=== PATIENT | male | born 1960 | race Caucasian/White ===

== ENCOUNTER → 2018-07-03 09:07 | Outpatient (CLI) | payer MEDICAID, SELFPAY ==
[2018-07-03 11:29] LABS: ALT 67 U/L (12-78); AST 28 U/L (15-37); Alkaline Phosphatase 104 U/L (46-116); Anion Gap 6.4 mmol/L (3-11); BUN 14 mg/dL (7-18); Bilirubin, Total 0.4 mg/dL (0.2-1.0); CO2 27.6 mmol/L (21.0-32.0); CREATININE 1.25 mg/dL (0.70-1.30); Calcium 8.9 mg/dL (8.5-10.1); Chloride 108 mmol/L (98-107); Cholesterol 161 mg/dL (50-200); Estimated GFR 59.32 (mL/min/1.73m2); Glucose 109 mg/dL (70-100); HDL Cholesterol 26 mg/dL (40-60); LDL CHOLESTEROL 103 mg/dL (<100); Potassium 4.8 mmol/L (3.5-5.1); Sodium 142 mmol/L (136-145); TSH (W/Ref FT4) 0.87 uIU/mL (0.358-3.74); Total Protein 6.7 g/dL (6.4-8.2); Triglyceride 253 mg/dL (30-150)
== END ==
PROVIDERS: PCP Family Medicine; Visit Provider Family Medicine
DX: Z13.220 Encounter for screening for lipoid disorders (principal); Z13.228 Encounter for screening for other metabolic disorders; Z13.29 Encounter for screening for other suspected endocrine disorder; Z00.00 Encounter for general adult medical examination without abnormal findings
CPT/HCPCS: 36415; 80053; 80061; 83721; 84443

== ENCOUNTER 2018-10-23 10:59 | Emergency (ER) | payer MEDICAID, SELFPAY ==
[2018-10-23 11:03] VITALS: BP 139/86; PULSE 69; RESP 16; O2SAT 93
--- NOTE | 2018-10-23 11:16 | ED.GENADUL_ITS ---
Discharge Plan Disposition Patient Disposition: HOME Condition: Stable Discharge Details Chief Complaint: RespSymp Clinical Impression: Bilateral wheezing, URI (upper respiratory infection), Influenza Primary Care Provider: Brooke Golden ED Provider: Kulwinder Boone Home Meds and New Rx's Prescriptions: New prednisone 20 mg tablet 60 mg PO DAILY 4 Days Qty: 12 RF: 0 doxycycline hyclate 100 mg tablet 100 mg PO BID Qty: 14 RF: 0 oseltamivir [Tamiflu] 75 mg capsule 75 mg PO BID 5 Days Qty: 10 RF: 0 Continued ASPIRIN 81 MG tablet 1 tab PO DAILY RF: 0 ascorbic acid (vitamin C) [Vitamin C] 500 MG tablet 1 tab PO DAILY RF: 0 garlic 1 EACH capsule 1 cap PO DAILY RF: 0 cholecalciferol (vitamin D3) 1,000 UNIT capsule 1 cap PO DAILY RF: 0 ginkgo biloba 400 MG capsule 1 cap PO DAILY RF: 0 EPINEPHRINE 0.3 MG/0.3 ML DISP.SYRIN 0.3 mg IM PRN RF: 0 red yeast rice 600 MG capsule 2 cap PO DAILY RF: 0 nicotine 1 EACH patch 24 hour 14 mg Transdermal DAILY Qty: 90 RF: 1 Atorvastatin Calcium 10 MG tablet 10 mg PO DAILY Qty: 90 RF: 12 propranolol 10 MG tablet 10 mg PO BID PRNQty: 180 RF: 12 citalopram 20 MG tablet 20 mg PO DAILY Qty: 90 RF: 12 ibuprofen 600 MG tablet 1 tab PO TID PRNQty: 200 RF: 12 atenolol 50 MG tablet 1 tab PO DAILY Qty: 90 RF: 12 nicotine (polacrilex) 2 mg gum 2 mg BC Q2H Qty: 100 RF: 4 gabapentin 300 mg capsule 300 mg PO TID Qty: 90 RF: 11 hydrocodone-acetaminophen 5-325 mg tablet 1 tab PO QID MDD 4 PRN (Reason: pain) Qty: 42 RF: 0 Discharge Instructions Additional Instructions: I suspect you have undiagosed COPD given your smoking history. I am treating you with antibiotics, steroids and an inhaler for this. You should follow up with your primary care provider within a week for recheck and discuss having formal testing for COPD Drink fluids to stay hydrated If you feel you are having more shortness of breath, severe weakness or feel significantly more ill return to the emergency department Medical Decision Making 57 yo male who has hx of chronic smoking who comes in with 3 days of subjective fevers, cough with some sputum production, denies recent travel. He is speaking in full sentences and appears well systemically with moist membranes, doubt sepsis. Does have mild wheezing at the bases bilaterally on exam, I suspect the patient has undiagnosed copd given his smoking hx and will treat as copd exacerbation with steroids and neb and also test for influenza. flu test is positive, will treat this given age and risk factors and also tx for copd exacerbation, remains stable and appropriate for outpatient management Differential Diagnosis copd, influenza, uri HPI General Mode of arrival: ambulatory . Date/Time Provider Initiated Documentation: 10/23/18 10:59 . Limitations to Documentation: no limitations . Information obtained by: patient . History of Present Illness 57 year old M presents to the emergency department with the chief complaint of cough, described as moderate, Patient started experiencing this day(s) (3) and it has been intermittent. No relieving factors improve symptom(s), Patient notes fever/chills. Patient did receive the following treatments prior to arrival, none Related Data Home Medications Medication Instructions Recorded Confirmed Aspirin 1 tab PO DAILY tab-cap 02/13/13 10/23/18 Epinephrine 0.3 mg IM PRN 02/13/13 10/23/18 ascorbic acid (vitamin C) [Vitamin 1 tab PO DAILY 02/13/13 10/23/18 C] cholecalciferol (vitamin D3) 1 cap PO DAILY 02/13/13 10/23/18 garlic 1 cap PO DAILY 02/13/13 10/23/18 ginkgo biloba 1 cap PO DAILY 02/13/13 10/23/18 red yeast rice 2 cap PO DAILY 07/06/15 10/23/18 nicotine 14 mg TRANSDERMAL DAILY #90 patch 09/25/17 10/23/18 atenolol 1 tab PO DAILY #90 tab-cap 01/22/18 10/23/18 citalopram 20 mg PO DAILY #90 tab-cap 01/22/18 10/23/18 ibuprofen 1 tab PO TID PRN #200 tab-cap 01/22/18 10/23/18 propranolol 10 mg PO BID PRN #180 tab-cap 01/22/18 10/23/18 gabapentin 300 mg capsule 300 mg PO TID #90 tab-cap 09/03/18 10/23/18 nicotine (polacrilex) 2 mg gum 2 mg BC Q2H #100 each 09/03/18 10/23/18 hydrocodone 5 mg-acetaminophen 325 1 tab PO QID PRN #42 tab-cap MDD 4 10/06/18 10/23/18 mg tablet doxycycline hyclate 100 mg PO BID #14 tab 10/23/18 oseltamivir [Tamiflu] 75 mg PO BID 5 Days #10 cap 10/23/18 prednisone 60 mg PO DAILY 4 Days #12 tab 10/23/18 Previous Rx's Medication Instructions Recorded nicotine 14 mg TRANSDERMAL DAILY #90 patch 09/25/17 atenolol 1 tab PO DAILY #90 tab-cap 01/22/18 citalopram 20 mg PO DAILY #90 tab-cap 01/22/18 gabapentin 300 mg capsule 300 mg PO TID #90 tab-cap 09/03/18 nicotine (polacrilex) 2 mg gum 2 mg BC Q2H #100 each 09/03/18 hydrocodone 5 mg-acetaminophen 325 1 tab PO QID PRN #42 tab-cap MDD 4 10/06/18 mg tablet doxycycline hyclate 100 mg PO BID #14 tab 10/23/18 oseltamivir [Tamiflu] 75 mg PO BID 5 Days #10 cap 10/23/18 prednisone 60 mg PO DAILY 4 Days #12 tab 10/23/18 Allergies Allergy/AdvReac Type Severity Reaction Status Date / Time venom-honey bee Allergy Syncope Unverified 10/23/18 11:07 morphine AdvReac N/V Unverified 10/23/18 11:07 General Stated Complaint: RespSymp LANEY: 4 Review of Systems Review of Systems All systems reviewed & are unremarkable except as noted in HPI and below Constitutional Denies chills, Denies fever(s) and Denies weakness Cardiovascular Denies chest pain and Denies dyspnea Respiratory Denies dyspnea Gastrointestinal Denies abdominal pain, Denies nausea and Denies vomiting Neurologic Denies weakness [facility] Surgical History Repair of inguinal hernia (~1979) Family History Mother Dementia Father Dementia Sister Celiac disease Brother No problems noted. Grandfather No problems noted. Grandfather No problems noted. Grandmother Heart disease Grandmother No problems noted. Uncle Charlie's disease Social History Smoking/Tobacco Use Status: Current every day Exam Const General: no acute distress Orientation: alert HENMT Head: normal to inspection Ears: external ears normal General nose exam: external nose normal Mouth: moist mucous membranes Eyes General: appearance normal, both eyes and all related structures Neck Neck: normal visual inspection Resp Effort & Inspection: normal respiratory effort and able to speak in complete sentences Cardio Rate: regular rate Skin General skin exam: no rashes or lesions noted Neuro General: alert and oriented x3 Extrem General: normal to inspection Psych Mental Status: mental status grossly normal Course Vital Signs Pulse 69 10/23/18 11:03 Respiratory Rate 16 10/23/18 11:03 Blood Pressure 139/86 10/23/18 11:03 Pulse Oximetry 93 L 10/23/18 11:03 Temperature Source Skin 10/23/18 11:03 Pulse 69 10/23/18 11:03 Respiratory Rate 16 10/23/18 11:03 Respiratory Effort Non-Labored 10/23/18 11:03 Blood Pressure 139/86 10/23/18 11:03 Blood Pressure Position Sitting 10/23/18 11:03 Pulse Oximetry 93 L 10/23/18 11:03 Oxygen Delivery Method Room Air 10/23/18 11:03 Oxygen Flow Rate 0 10/23/18 11:03 Pain Level 7 10/23/18 11:03
[2018-10-23 11:22] VITALS: O2SAT 93
[2018-10-23] MEDS: Albuterol/Ipratropium 3 ML UPD VIAL UPD (11:22)
[2018-10-23] MEDS: predniSONE 20 MG TAB 60 MG PO (11:22)
[2018-10-23] MEDS: Albuterol HFA 8 GM 60 PUFF INH IH (12:07)
[2018-10-23] MEDS: Inhaler, Assist Device 1 EACH MC (12:09)
== END 2018-10-23 12:13 | disposition home or self-care (01) ==
LOC: ER 11:46
PROVIDERS: Emergency Provider Emergency Medicine; PCP Family Medicine
DX: R06.02 Shortness of breath (principal); J06.9 Acute upper respiratory infection, unspecified; J10.1 Influenza due to other identified influenza virus with other respiratory manifestations; F17.210 Nicotine dependence, cigarettes, uncomplicated
CPT/HCPCS: 87449; 99283; J7512; J7620

== ENCOUNTER 2020-03-23 10:41 | Emergency (ER) | payer MEDICAID, SELFPAY ==
[2020-03-23 10:45] VITALS: BP 154/94; PULSE 77; RESP 18; TEMP 36.4; O2SAT 96
--- NOTE | 2020-03-23 10:53 | ED.GENADUL_ITS ---
Discharge Plan Disposition Patient Disposition: HOME Condition: Stable Discharge Details Chief Complaint: Nk/Back Pain Clinical Impression: Back pain Primary Care Provider: Brooke Golden ED Provider: Shanda Lizama Home Meds and New Rx's Prescriptions: Continued ASPIRIN 81 MG tablet 1 tab PO DAILY RF: 0 ascorbic acid (vitamin C) [Vitamin C] 500 MG tablet 1 tab PO DAILY RF: 0 garlic 1 EACH capsule 1 cap PO DAILY RF: 0 cholecalciferol (vitamin D3) 1,000 UNIT capsule 1 cap PO DAILY RF: 0 ginkgo biloba 400 MG capsule 1 cap PO DAILY RF: 0 EPINEPHRINE 0.3 MG/0.3 ML DISP.SYRIN 0.3 mg IM PRN RF: 0 red yeast rice 600 MG capsule 2 cap PO DAILY RF: 0 ibuprofen 600 mg tablet 600 mg PO TID PRN (Reason: pain) Qty: 100 RF: 4 atenolol 50 mg tablet 50 mg PO DAILY Qty: 90 RF: 12 nicotine (polacrilex) 2 mg gum 2 mg BC Q2H Qty: 100 RF: 2 citalopram 20 mg tablet 20 mg PO DAILY Qty: 90 RF: 12 atorvastatin [Lipitor] 10 mg tablet 10 mg PO DAILY Qty: 90 RF: 3 propranolol 10 mg tablet 10 mg PO BID PRN (Reason: anxiety) Qty: 180 RF: 4 acetaminophen 325 mg Tablet 650 mg PO DIRECTED PRNRF: 0 gabapentin 300 mg capsule 300 mg PO TID PRNRF: 0 No Action hydrocodone-acetaminophen 5-325 mg tablet 1 tab PO TID MDD 3 PRN (Reason: pain) Qty: 15 RF: 0 Discharge Instructions Instructions: Back Pain (ED) Additional Instructions: You may take lidocaine patches which are available over the counter. Follow up with PCP in 3-5 days, return to ED for any worsening pain, fever, vomiting, or shortness of breath. Take Tylenol or Ibuprofen asneeded for pain. Referrals: Brooke Golden MD, [place] [Primary Care Provider] - Discharge Data Discharge Date/Time-TO BE ENTERED AT DEPARTURE: 03/23/20 12:29 Medical Decision Making <hSanda Lizama - Last Filed: 03/23/20 13:08> 59-year-old male presents with a chief complaint of right-sided flank pain. He states that this began Sunday morning describes a sharp, waxes and wanes, moderate to severe. He reports posterior right flank pain, worse with deep breathing. Denies any injuries, reports similar episode 1 year ago which was improved with muscle relaxers and chiropractor. Patient went to the chiropractor yesterday with no improvement, took cyclobenzaprine and Tylenol prior to arrival with little to no relief. He denies any fever or chills, positive nausea, no vomiting no diarrhea.Denies dysuria. Labs ordered including CBC, CMP, D-dimer to rule out coagulopathy. CXR obtained results are below. Chest X-ray: COMPARISON: No exams were available for comparison FINDINGS: MEDIASTINUM: Normal. HEART: Normal. PULMONARY VASCULATURE: Normal. LUNGS: There is scarring or atelectasis in the right lung base. PLEURAL SPACE: No pleural effusion or pneumothorax. BONE:There is no evidence of a rib fracture. OTHER FINDINGS:Normal. IMPRESSION: No evidence of a rib fracture. Scarring or atelectasis in the right lung base. 1214: Patient re-evaluation pain is improved with lidocaine patch. D-dimer is negative. Plan is to discharge. <John Whitlock MD - Last Filed: 03/26/20 08:23> Patient seen, examined, and discussed with HUSSAIN Lizama. Reviewed results with the patient. I suggested he follow-up with his primary care physician and if pain persist he may need additional diagnostic imaging given chest x-ray findings. I agree with treatment plan as discussed/documented. Patient stable at time of discharge. HPI <Shanda Lizama - Last Filed: 03/23/20 13:08> General Mode of arrival: ambulatory . Date/Time Provider Initiated Documentation: 03/23/20 10:42 . Limitations to Documentation: no limitations . Information obtained by: patient . HPI Narrative: 59-year-old male presents with a chief complaint of right-sided flank pain. He states that this began Sunday morning describes a sharp, waxes and wanes, moderate to severe. He reports posterior right flank pain, worse with deep breathing. Denies any injuries, reports similar episode 1 year ago which was improved with muscle relaxers and chiropractor. Patient went to the chiropractor yesterday with no improvement, took cyclobenzaprine and Tylenol prior to arrival with little to no relief. He denies any fever or chills, positive nausea, no vomiting no diarrhea.Denies dsuria. Related Data Home Medications Medication Instructions Recorded Confirmed Aspirin 1 tab PO DAILY tab-cap 02/13/13 03/24/20 Epinephrine 0.3 mg IM PRN 02/13/13 03/24/20 ascorbic acid (vitamin C) [Vitamin 1 tab PO DAILY 02/13/13 03/24/20 C] cholecalciferol (vitamin D3) 1 cap PO DAILY 02/13/13 03/24/20 garlic 1 cap PO DAILY 02/13/13 03/24/20 ginkgo biloba 1 cap PO DAILY 02/13/13 03/24/20 red yeast rice 2 cap PO DAILY 07/06/15 03/24/20 ibuprofen 600 mg tablet 600 mg PO TID PRN #100 tab 01/24/19 03/24/20 atenolol 50 mg tablet 50 mg PO DAILY #90 tab-cap 07/21/19 03/24/20 nicotine (polacrilex) 2 mg gum 2 mg BC Q2H #100 each 01/23/20 03/24/20 atorvastatin 10 mg tablet 10 mg PO DAILY #90 tab 02/17/20 03/24/20 citalopram 20 mg tablet 20 mg PO DAILY #90 tab-cap 02/17/20 03/24/20 propranolol 10 mg tablet 10 mg PO BID PRN #180 tab-cap 02/17/20 03/24/20 acetaminophen 650 mg PO DIRECTED PRN 03/23/20 03/24/20 gabapentin 300 mg PO TID PRN 03/23/20 03/24/20 hydrocodone 5 mg-acetaminophen 325 1 tab PO TID PRN #15 tab-cap MDD 3 03/24/20 03/24/20 mg tablet Previous Rx's Medication Instructions Recorded ibuprofen 600 mg tablet 600 mg PO TID PRN #100 tab 01/24/19 atenolol 50 mg tablet 50 mg PO DAILY #90 tab-cap 07/21/19 nicotine (polacrilex) 2 mg gum 2 mg BC Q2H #100 each 01/23/20 atorvastatin 10 mg tablet 10 mg PO DAILY #90 tab 02/17/20 citalopram 20 mg tablet 20 mg PO DAILY #90 tab-cap 02/17/20 propranolol 10 mg tablet 10 mg PO BID PRN #180 tab-cap 02/17/20 hydrocodone 5 mg-acetaminophen 325 1 tab PO TID PRN #15 tab-cap MDD 3 03/24/20 mg tablet Allergies Allergy/AdvReac Type Severity Reaction Status Date / Time venom-honey bee Allergy Syncope Unverified 03/24/20 08:24 morphine AdvReac N/V Unverified 03/24/20 08:24 General Stated Complaint: Nk/Back Pain LANEY: 3 Review of Systems <Shanda Dl - Last Filed: 03/23/20 13:08> Narrative: Constitutional: Negative for weight loss, alert and oriented, well groomed, normal body habitus, appears comfortable. HEENT: Denies trauma, headaches, blurry vision, nasal discharge, sore throat, trouble swallowing. Chest: Denies chest pain, palpitations, irregular rhythm, hypertension. Respiratory: Denies Shortness of breath, cough, hemoptysis. GI: Denies abdominal pain, nausea, vomiting, diarrhea, constipation. : Denies dysuria, hematuria, flank pain, rectal bleeding. Neuro: Denies dizziness, blurry vision, weakness, syncope, headache or facial numbness. Hematologic: Denies easy bruising, intolerance to heat or cold, hair loss. All systems reviewed & are unremarkable except as noted in HPI and below PFSH <Shanda Dl - Last Filed: 03/23/20 13:08> Medical History Anxiety (Chronic 12/18/16) Chronic pain disorder (Chronic 06/20/12) 02/07/16; NARCOTIC CONTRACT 07/03/17; CONTROLLED SUBSTANCE AGREEMENT~RENEWED Degeneration of cervical intervertebral disc (Chronic 09/05/10) Depressive disorder (Chronic 09/05/10) Economic problem (Chronic) Essential hypertension (Chronic) Hyperlipidemia (Chronic 05/27/13) Lumbago (Chronic 09/05/10) Onychomycosis (Chronic 09/05/10) Plantar fascia syndrome (Resolved) 10/21/15 Shoulder pain (Resolved 04/20/14) partiel tear of supraspinatus mri 01/17 Smoker (Chronic 09/05/10) Surgical History Repair of inguinal hernia (~1979) RIGHT Family History Mother , 89 Dementia Father , 74 Dementia Sister Celiac disease Brother No problems noted. Maternal Grandfather No problems noted. Paternal Grandfather No problems noted. Maternal Grandmother , 84 Heart disease Paternal Grandmother No problems noted. Uncle Wirt's disease Sister No problems noted. Daughter No problems noted. Social History Smoking/Tobacco Use Status: Current every day Tobacco Type: cigarettes Alcohol Intake: former Drug use: Occasionally Substance use type: painkillers Details: prescription- hydrocodone 5 mg x 15 pills per month. Is out this month. Household members: spouse, children and other Details: Grandchildren Pets and animals: Yes Pets and animals: bird(s) Sexually active: Yes Do you think of yourself as: straight/heterosexual Current gender identity: male What is your relationship status?: How often do you talk on the phone with friends or family?: once per week How often do you get together with friends or relatives?: decline to answer How often do you attend temple or restorationist services?: decline to answer Do you belong to any clubs or organized social groups?: decline to answer Panel score (0-1 are the most socially isolated patients): 1 What type of physical activity do you participate in: decline to answer Duration: 15-30 minutes/day Frequency: decline to answer Nahomi/Moravian: Restorationist Special nahomi needs: No Seatbelt use: always Drive intox or ride w/intox [employer]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 Appears stated age. Normal body habitus. Head: Normocephalic, no trauma. Eyes: Pupils PERRLA, Red reflex noted, EOM's intact. Eyelids symmetrical without lesions, discharge, or swelling. ENT: Bilateral TM's WNL, External ear normal to inspection, no mastoid TTP, swelling, or erythema, Nasal turbinates WNL, no nasal discharge. Normal dentition, Posterior pharynx WNL, no exudate. Chest: RRR, Normal S1, S2, distal pulses intact. Resp: Lungs clear to auscultation bilaterally, no wheezes, rales, or rhonchi. Musculoskeletal: Normal gait, 5/5 strength to all four extremities. Skin: No suspicious rashes or lesions. Capillary refill less than 2 sec. Neurologic: Cranial nerves II-XII intact. Alert and oriented x 3. DTR's intact. Hematologic/Lymphatic: No ecchymosis, no lymphadenopathy. Course <Shanda Lizama - Last Filed: 03/23/20 13:08> Vital Signs Vital signs: Vital Signs Temperature 36.4 C L 03/23/20 10:45 Pulse 77 03/23/20 10:45 Respiratory Rate 18 03/23/20 10:45 Blood Pressure 154/94 H 03/23/20 10:45 Pulse Oximetry 96 03/23/20 10:45 Temperature 36.4 C L 03/23/20 10:45 Pulse 77 03/23/20 10:45 Respiratory Rate 18 03/23/20 10:45 Blood Pressure 154/94 H 03/23/20 10:45 Blood Pressure Position Sitting 03/23/20 10:45 Pulse Oximetry 96 03/23/20 10:45 Oxygen Delivery Method Room Air 03/23/20 10:45 Oxygen Flow Rate 0 03/23/20 10:45 Pain Level 8 03/23/20 10:45
--- NOTE | 2020-03-23 11:15 | DI.RAD_ITS ---
EXAM: XR RIBS RT W PA LAT CHEST CLINICAL HISTORY: Right flank pain TECHNIQUE: 2D digital imaging was performed. COMPARISON: No exams were available for comparison FINDINGS: MEDIASTINUM: Normal. HEART: Normal. PULMONARY VASCULATURE: Normal. LUNGS: There is scarring or atelectasis in the right lung base. PLEURAL SPACE: No pleural effusion or pneumothorax. BONE:There is no evidence of a rib fracture. OTHER FINDINGS:Normal. IMPRESSION: No evidence of a rib fracture. Scarring or atelectasis in the right lung base. DATA REPOSITORY: RADIATION DOSE DELIVERED:
[2020-03-23 11:29] LABS: Bilirubin Negative (Negative); Blood Negative (Negative); Clarity Clear (Clear); Glucose Negative (Negative); Ketones Negative (Negative); Leukocyte Esterase Negative (Negative); Nitrite Negative (Negative); Specific Gravity 1.025 (1.005-1.025); Urobilinogen 0.2 EU/dL (Up TO 0.2); pH 5.5 (5-8)
[2020-03-23] MEDS: Lidocaine 5% Patch 1 PATCH TP (11:37)
[2020-03-23 11:38] LABS: HCT 47.6 % (40.0-50.0); HGB 16.1 g/dL (13.5-17.5); Mean Corp. HGB Concentration 33.8 g/dL (32.0-36.0); Mean Corpuscular Volume 91.5 fL (80-95); Mean Platelet Volume 11.5 fL (8.0-11.0); Platelet Count 202 x1000/uL (130-400); RBC Distribution Width 13.2 % (11.8-14.1); White Blood Cell Count 8.52 k/cumm (4.4-10.8)
[2020-03-23] MEDS: Normal Saline Flush 10 ML SYR IVP (11:39)
[2020-03-23 11:44] VITALS: BP 135/90; PULSE 72; RESP 16; TEMP 37.1; O2SAT 97
[2020-03-23 11:55] LABS: ALT 52 U/L (16-63); AST 27 U/L (15-37); Albumin 4.1 g/dL (3.4-5.0); Alkaline Phosphatase 115 U/L (46-116); Anion Gap 7.7 mmol/L (3-11); BUN 14 mg/dL (7-18); Bilirubin, Total 0.4 mg/dL (0.2-1.0); CO2 26.3 mmol/L (21.0-32.0); CREATININE 1.27 mg/dL (0.70-1.30); Calcium 9.4 mg/dL (8.5-10.1); Chloride 104 mmol/L (98-107); Estimated GFR 57.85 (mL/min/1.73m2); Glucose 116 mg/dL (74-106); Potassium 4.2 mmol/L (3.5-5.1); Sodium 138 mmol/L (136-145); Total Protein 7.4 g/dL (6.4-8.2)
[2020-03-23 12:12] LABS: D-Dimer 471 ng/mlFEU (<500)
== END 2020-03-23 12:29 | disposition home or self-care (01) ==
PROVIDERS: Emergency Provider Registered Nurse Emergency; PCP Family Medicine
DX: M54.5 Low back pain (principal); I10 Essential (primary) hypertension
CPT/HCPCS: 36415; 80053; 85027; 96372; 99284; 99285; 71046; 71100; 81003; 85379

== ENCOUNTER 2020-03-23 15:54 | Emergency (ER) | payer MEDICAID, SELFPAY ==
[2020-03-23 15:59] VITALS: BP 178/103; PULSE 70; RESP 19; TEMP 37.6; O2SAT 96
[2020-03-23] MEDS: Ketorolac 60 MG/2 ML VIAL IM (16:27)
[2020-03-23] MEDS: Cyclobenzaprine 10 MG TAB PO (16:27)
--- NOTE | 2020-03-23 17:03 | NUR.NOTE ---
Pt states no change in pain with previous interventions. provider aware, will re-evaluate:
[2020-03-23 17:30] VITALS: BP 156/84; PULSE 67; RESP 16; TEMP 37.7; O2SAT 98
--- NOTE | 2020-03-23 17:32 | ED.GENADUL_ITS ---
Discharge Plan Disposition Patient Disposition: HOME Condition: Stable Discharge Details Chief Complaint: Recheck Clinical Impression: Back pain, Renal cyst Primary Care Provider: Brooke Golden ED Provider: Chidi Torres Home Meds and New Rx's Prescriptions: No Action ASPIRIN 81 MG tablet 1 tab PO DAILY RF: 0 ascorbic acid (vitamin C) [Vitamin C] 500 MG tablet 1 tab PO DAILY RF: 0 garlic 1 EACH capsule 1 cap PO DAILY RF: 0 cholecalciferol (vitamin D3) 1,000 UNIT capsule 1 cap PO DAILY RF: 0 ginkgo biloba 400 MG capsule 1 cap PO DAILY RF: 0 EPINEPHRINE 0.3 MG/0.3 ML DISP.SYRIN 0.3 mg IM PRN RF: 0 red yeast rice 600 MG capsule 2 cap PO DAILY RF: 0 ibuprofen 600 mg tablet 600 mg PO TID PRN (Reason: pain) Qty: 100 RF: 4 atenolol 50 mg tablet 50 mg PO DAILY Qty: 90 RF: 12 nicotine (polacrilex) 2 mg gum 2 mg BC Q2H Qty: 100 RF: 2 citalopram 20 mg tablet 20 mg PO DAILY Qty: 90 RF: 12 atorvastatin [Lipitor] 10 mg tablet 10 mg PO DAILY Qty: 90 RF: 3 propranolol 10 mg tablet 10 mg PO BID PRN (Reason: anxiety) Qty: 180 RF: 4 hydrocodone-acetaminophen 5-325 mg tablet 1 tab PO TID MDD 3 PRN (Reason: pain) Qty: 15 RF: 0 acetaminophen 325 mg Tablet 650 mg PO DIRECTED PRNRF: 0 gabapentin 300 mg capsule 300 mg PO TID PRNRF: 0 Discharge Instructions Instructions: Back Pain (ED) Additional Instructions: CT reveals a benign right renal cyst, 5 cm in size. Could certainly explain your symptoms. Your CBC, CMP, d-dimer, urinalysis from your visit earlier today were all normal and reassuring. X-ray of your chest was taken and discussed with him. I will send this record to your primary care office so they were aware of your visit today, I strongly recommend contacting them first thing tomorrow morning for prompt outpatient reevaluation. Nephrology referral through your primary care is likely indicated if symptoms persist. Tomorrow you are able to fill your narcotic prescription and take as directed. In the meantime I recommend gentle stretching, cool and/or warm compresses, [id number] anti-inflammatory medication as directed. Please watch for new or worsening symptoms and return to the ER for any concerns. As we discussed, you do have a pain contract, and this does limit the options that I have to treat her pain here in the ER. We initially tried Flexeril and Toradol without relief. We agreed to a one-time dose of IM morphine. This medication did seem to take the edge off of your symptoms. Discharge Data Discharge Date/Time-TO BE ENTERED AT DEPARTURE: 03/23/20 18:47 Medical Decision Making 59-year-old gentleman who presents twice today for the same right back-flank discomfort. He denies any chest pain. Examination certainly shows that there is some musculoskeletal component to this however his pain does appear slightly worse than I would expect. I did review labs earlier today, chest x-ray, CBC, CMP, d-dimer, urinalysis. Patient given p.o. Flexeril and IV Toradol. Patient had no resolution of his symptoms. We discussed his pain contract, will give a single dose of IM morphine. Given I do not have a clear explanation of his discomfort will obtain CT abdomen pelvis with contrast. Patient is agreeable to this plan CT reveals a benign right renal cyst 5 cm, simple morphology with no surrounding edema. No significant stones are identified in the collecting system. Scattered colonic diverticula without diverticulitis. Mild anterolisthesis L4 over L5. CT does not reveal any obvious emergent or surgical process however given he does have a 5 cm cyst along right kidney, this certainly could play into his discomfort. Discussed findings with patient. Actually his called as well I discussed everything up till CT, when she called he was actually at CT. When the patient returned from CT he reports that the morphine did take the edge off of his symptoms. We discussed the CT findings. We discussed disposition, he will be discharged now, can fill his prescription for pain medications written by his primary care provider tomorrow and will reach out to their office. I have placed him on the care management list to help expedite outpatient follow- up, he understands if symptoms persist he will likely need nephrology follow-up. Patient has no additional questions or concerns and is comfortable discharge at this time. I did discuss presentation, evaluation, and disposition with Dr. Whitlock. Medical Records Medical records reviewed: Yes I reviewed the patient's medical records. Lab Data Lab results reviewed: Yes I reviewed the patient's lab results. Lab results narrative: I reviewed labs from the visit earlier today. HPI General Mode of arrival: ambulatory . Date/Time Provider Initiated Documentation: 03/23/20 16:04 . Limitations to Documentation: no limitations . Information obtained by: patient . HPI Narrative: This is a 59-year-old gentleman with history of chronic neck pain, hyperlipidemia, depression, anxiety, hypertension, chronic pain disorder, presenting now for the second time in the ER today for right sided back-flank discomfort. He reports that the yong n began on Sunday upon waking. He did start working again on Sunday and does repetitive motion and lifting although it does not remember an actual injury. Reports a similar presentation 1 year ago, went to his chiropractor and after adjustment felt better the next day or 2. Did see his chiropractor yesterday however adjustment has not helped. Reports the pain is across his right lower ribs, right flank, worse with movement or engagement of his core. During his visit earlier today he had a chest x-ray, CBC, CMP, d-dimer and urinalysis, subsequently discharged with Lidoderm patch however he took it off. He does get 15 Percocet on a monthly basis through his primary care provider, has been out of his medication for approximately 1 week and can refill his medication tomorrow. He denies any chest pain, shortness of breath, abdominal pain, dysuria, hematuria, radiation of pain down his legs or into his groin. Denies numbness, tingling, weakness. Related Data Home Medications Medication Instructions Recorded Confirmed Aspirin 1 tab PO DAILY tab-cap 02/13/13 03/23/20 Epinephrine 0.3 mg IM PRN 02/13/13 03/23/20 ascorbic acid (vitamin C) [Vitamin 1 tab PO DAILY 02/13/13 03/23/20 C] cholecalciferol (vitamin D3) 1 cap PO DAILY 02/13/13 03/23/20 garlic 1 cap PO DAILY 02/13/13 03/23/20 ginkgo biloba 1 cap PO DAILY 02/13/13 03/23/20 red yeast rice 2 cap PO DAILY 07/06/15 03/23/20 ibuprofen 600 mg tablet 600 mg PO TID PRN #100 tab 01/24/19 03/23/20 atenolol 50 mg tablet 50 mg PO DAILY #90 tab-cap 07/21/19 03/23/20 nicotine (polacrilex) 2 mg gum 2 mg BC Q2H #100 each 01/23/20 03/23/20 atorvastatin 10 mg tablet 10 mg PO DAILY #90 tab 02/17/20 03/23/20 citalopram 20 mg tablet 20 mg PO DAILY #90 tab-cap 02/17/20 03/23/20 propranolol 10 mg tablet 10 mg PO BID PRN #180 tab-cap 02/17/20 03/23/20 hydrocodone 5 mg-acetaminophen 325 1 tab PO TID PRN #15 tab-cap MDD 3 02/25/20 03/23/20 mg tablet acetaminophen 650 mg PO DIRECTED PRN 03/23/20 03/23/20 gabapentin 300 mg PO TID PRN 03/23/20 03/23/20 Previous Rx's Medication Instructions Recorded ibuprofen 600 mg tablet 600 mg PO TID PRN #100 tab 01/24/19 atenolol 50 mg tablet 50 mg PO DAILY #90 tab-cap 07/21/19 nicotine (polacrilex) 2 mg gum 2 mg BC Q2H #100 each 01/23/20 atorvastatin 10 mg tablet 10 mg PO DAILY #90 tab 02/17/20 citalopram 20 mg tablet 20 mg PO DAILY #90 tab-cap 02/17/20 propranolol 10 mg tablet 10 mg PO BID PRN #180 tab-cap 02/17/20 hydrocodone 5 mg-acetaminophen 325 1 tab PO TID PRN #15 tab-cap MDD 3 02/25/20 mg tablet Allergies Allergy/AdvReac Type Severity Reaction Status Date / Time venom-honey bee Allergy Syncope Unverified 03/23/20 11:41 morphine AdvReac N/V Unverified 03/23/20 11:41 General Stated Complaint: Recheck LANEY: 3 Review of Systems Constitutional Constitutional: Denies fatigue, Denies fever(s) and Denies weakness Cardiovascular Cardiovascular: Denies chest pain and Denies dyspnea Respiratory Respiratory: Denies cough and Denies dyspnea Gastrointestinal Gastrointestinal: Reports abdominal pain (Right flank), Denies diarrhea, Denies nausea and Denies vomiting Genitourinary Genitourinary: Denies hematuria and Denies dysuria Musculoskeletal Musculoskeletal: Reports back pain, Denies myalgias, Denies numbness, Denies stiffness and Denies tingling Integumentary/Breasts Skin/Breast: Denies rash Neurologic Neurologic: Denies numbness, Denies tingling and Denies weakness Endocrine Endocrine: Denies fatigue PFSH Medical History Anxiety (Chronic 12/18/16) Chronic pain disorder (Chronic 06/20/12) 02/07/16; NARCOTIC CONTRACT 07/03/17; CONTROLLED SUBSTANCE AGREEMENT~RENEWED Degeneration of cervical intervertebral disc (Chronic 09/05/10) Depressive disorder (Chronic 09/05/10) Economic problem (Chronic) Essential hypertension (Chronic) Hyperlipidemia (Chronic 05/27/13) Lumbago (Chronic 09/05/10) Onychomycosis (Chronic 09/05/10) Plantar fascia syndrome (Resolved) 10/21/15 Shoulder pain (Resolved 04/20/14) partiel tear of supraspinatus mri 01/17 Smoker (Chronic 09/05/10) Surgical History Repair of inguinal hernia (~1979) RIGHT Family History Mother , 89 Dementia Father , 74 Dementia Sister Celiac disease Brother No problems noted. Maternal Grandfather No problems noted. Paternal Grandfather No problems noted. Maternal Grandmother , 84 Heart disease Paternal Grandmother No problems noted. Uncle [place]'s disease Sister No problems noted. Daughter No problems noted. Social History Smoking/Tobacco Use Status: Current every day Tobacco Type: cigarettes Alcohol Intake: former Drug use: Occasionally Substance use type: painkillers Details: prescription- hydrocodone 5 mg x 15 pills per month. Is out this month. Household members: spouse, children and other Details: Grandchildren Pets and animals: Yes Pets and animals: bird(s) Sexually active: Yes Do you think of yourself as: straight/heterosexual Current gender identity: male What is your relationship status?: How often do you talk on the phone with friends or family?: once per week How often do you get together with friends or relatives?: decline to answer How often do you attend quaker or restorationism services?: decline to answer Do you belong to any clubs or organized social groups?: decline to answer Panel score (0-1 are the most socially isolated patients): 1 What type of physical activity do you participate in: decline to answer Duration: 15-30 minutes/day Frequency: decline to answer Nahomi/Confucianist: Congregation Special nahomi needs: No Seatbelt use: always Drive intox or ride w/intox front end loader driver: No Do you feel safe at home: Yes Do you feel safe in your relationship?: Yes Exam Const General: cooperative, healthy appearing, comfortable and in distress mild Orientation: alert, awake and oriented x3 HENMT Head: normal to inspection, normocephalic and atraumatic Mouth: moist mucous membranes Throat: posterior oropharynx normal Eyes Conjunctivae: conjunctivae normal Neck Neck: normal visual inspection, full ROM, meningismus present, trachea midline and supple Chest Chest: normal inspection of the chest and normal palpation of entire chest wall Resp Effort & Inspection: normal respiratory effort and able to speak in complete sentences Auscultation: clear to auscultation bilaterally Cardio Rate: regular rate Rhythm: regular rhythm GI Inspection: normal to inspection Palpation: soft, not firm, no guarding, not rigid and tender (Diffuse right flank) with no rebound tenderness Auscultation: normal bowel sounds Back/Spine/Pelvis Back: No no CVA tenderness, No erythema, No warmth and back tenderness (Diffuse lower thoracic, upper lumbar right-sided discomfort without spasm) Thoracic/Lumbar Spine: straight leg raise positive (Bilateral left 15, right 20 degrees) Skin General skin exam: no rashes or lesions noted Neuro General: patient alert, patient awake, patient oriented x3, moves all extremiti es and no focal motor deficits Cognition: normal cognition Speech: speech normal Gait: normal gait Motor: muscle tone normal throughout and strength 5/5 throughout Sensory Exam: no sensory deficits noted Extrem General: normal to inspection, full ROM, capillary refill normal, no pedal edema and no calf tenderness Right upper extremity: normal to inspection, full ROM and normal capillary refill Left upper extremity: normal to inspection, full ROM and normal capillary refill Right lower extremity: normal to inspection, full ROM and normal capillary refill Left lower extremity: normal to inspection, full ROM and normal capillary refill Psych Appearance: grossly normal Mental Status: mental status grossly normal Course Vital Signs Vital signs: Vital Signs Temperature 37.6 C H 03/23/20 15:59 Pulse 70 03/23/20 15:59 Respiratory Rate 19 03/23/20 15:59 Blood Pressure 178/103 H 03/23/20 15:59 Pulse Oximetry 96 03/23/20 15:59 Temperature 37.7 C H 03/23/20 17:30 Temperature Source Tympanic 03/23/20 17:30 Pulse 67 03/23/20 17:30 Respiratory Rate 16 03/23/20 17:30 Respiratory Effort 03/23/20 16:02 Blood Pressure 156/84 H 03/23/20 17:30 Blood Pressure Position Sitting 03/23/20 15:59 Pulse Oximetry 98 03/23/20 17:30 Oxygen Delivery Method Room Air 03/23/20 17:30 Oxygen Flow Rate 0 03/23/20 17:30 Pain Level 9 03/23/20 16:27
--- NOTE | 2020-03-23 17:45 | DI.CT_ITS ---
EXAM: CT ABDOMEN PELVIS W CLINICAL HISTORY: Right flank pain, normal labs, no hematuria. TECHNIQUE: Imaging Protocol: Axial computed tomography images with coronal and sagittal reformatted images were created and reviewed CONTRAST MATERIAL: Intravenous: Omnipaque 350 Contrast volume:100 mL Oral: No COMPARISON: No exams were available for comparison FINDINGS: ABDOMEN: Lung Bases: Bilateral basilar infiltrates are seen. These may represent atelectasis or pneumonia. P lease correlate clinically. Liver: Well-circumscribed hypodensities in the liver likely reflecting small cysts but are too small for further characterization. No measurable mass. Portal, Superior Mesenteric, and Splenic Veins: Unremarkable. Gallbladder and Biliary Tract: No radiodense calculus or dilation. Pancreas: Normal density, no abnormal calcifications or inflammatory process. Spleen: Normal. Adrenals: No masses seen. Kidneys: Normal size, contour and axis. No radiodense stones or obstructive uropathy. There are bilat eral simple renal cysts. The largest measures 5.2 cm and is located in the right kidney. No solid r enal mass. Abdominal Aorta: Abdominal portion non-dilated. Atherosclerosis. Bowel: No obstruction or bowel wall thickening. No evidence of acute appendicitis. Colonic diverticu losis but no evidence of acute diverticulitis. Peritoneal Cavity: No ascites, collection or mesenteric inflammatory response. Lymph Nodes: Within normal limits. Bones: Degenerative changes in the spine. Mild pseudo spondylolisthesis of L4 on L5. Soft Tissues: Small fat containing umbilical hernia. Small amount of subcutaneous gas overlying the left gluteal muscles. No focal fluid collection or surrounding edema. PELVIS: Bladder: Symmetric distention, no gross wall thickening. Reproductive Organs: Unremarkable as visualized. Lymph Nodes: Within normal limits. Bones: Degenerative changes in the spine. IMPRESSION: 1. No acute intra-abdominal or pelvic abnormality. 2. Small amount of subcutaneous gas overlying the left gluteal muscles. Please correlate clinically. Has there been a recent injection? RADIATION DOSE DELIVERED: 958.97mGy.cm Total DLP DATA REPOSITORY: All CT scans at this facility are submitted to the National Radiology Data Registry (NRDR) Dose Index Registry (DIR) with the [employer] (ACR). RADIATION OPTIMIZATION: All CT scans at this facility use at least one of these dose optimization te chniques: automated exposure control; mA and/or kV adjustment per patient size (includes targeted exa ms where dose is matched to clinical indication); or iterative reconstruction.
[2020-03-23] MEDS: Omnipaque 350 MG/ML 100 ML BTL IJ (18:14)
[2020-03-23] MEDS: Normal Saline - Diluent 50 ML VIAL IV (18:15)
[2020-03-23] MEDS: Normal Saline Flush 10 ML SYR IVP (18:16)
--- NOTE | 2020-03-23 18:32 | DI.VRAD_ITS ---
PROCEDURE INFORMATION: Exam: CT Abdomen And Pelvis With Contrast Exam date and time: 03/23/2020 17:56 Age: 59 years old Clinical indication: Abdominal pain and other: Right flank pain, normal labs, no hematuria. ; Prior surgery; Surgery date: 6+ months; Surgery type: Hernia repair TECHNIQUE: Imaging protocol: Computed tomography of the abdomen and pelvis with intravenous contrast. Radiation optimization: All CT scans at this facility use at least one of these dose optimization techniques: automated exposure control; mA and/or kV adjustment per patient size (includes targeted exams where dose is matched to clinical indication); or iterative reconstruction. Contrast material: OMNIPAQUE 350; Contrast volume: 100 ml; Contrast route: IV; COMPARISON: No relevant prior studies available. FINDINGS: Lungs: Mild subsegmental atelectasis right greater than left lung base. Liver: A benign-appearing right hepatic probable cyst, additional probable cyst. No suspicious hepatic lesions. Gallbladder and bile ducts: No calcified stones. No ductal dilation. Pancreas: No ductal dilation. No masses. Spleen: No splenomegaly or focal lesions. Adrenals: No mass. Kidneys and ureters: Benign right renal cyst. Benign left renal cyst. No renal masses or hydronephrosis bilaterally. A dominant and benign-appearing 5 cm right renal cyst, simple in morphology and with no surrounding edema, felt to be an on likely source of the patient's pain. No significant stones are identified in the collecting systems on postcontrast imaging. Stomach and bowel: Scattered colonic diverticula without diverticulitis. No focal pathology in the small bowel. Appendix: No evidence of appendicitis. Intraperitoneal space: No free air. No significant fluid collection. Vasculature: No abdominal aortic aneurysm. Lymph nodes: No significantly enlarged lymph nodes. Bladder: Unremarkable as visualized. Reproductive: Unremarkable as visualized. Bones/joints: Minor anterolisthesis L4 over L5 appearing likely chronic and degenerative, in the setting of mild facet hypertrophy. No acute fracture or subluxation. Soft tissues: Small fat-containing umbilical hernia. Surgical clips in the inguinal canal bilaterally presumed vasectomies. A small amount of gas left supra gluteal subcutaneous fat without surrounding edema. A probable right inguinal hernia repair, no residual or recurrent hernia. IMPRESSION: 1. No acute findings. No source of pain is identified. 2. A small amount of gas left supra gluteal subcutaneous fat without surrounding edema. Question medication injection? 3. Nonurgent findings as above. Dictated and Authenticated by: Jacqueline Chung MD. Ordering:FRANSISCA Murillo MD
== END 2020-03-23 18:47 | disposition home or self-care (01) ==
PROVIDERS: Emergency Provider Physician Assistant; PCP Family Medicine
DX: N28.1 Cyst of kidney, acquired (principal); M54.5 Low back pain; I10 Essential (primary) hypertension
CPT/HCPCS: 36415; 80053; 85027; 96372; 99284; 99285; 71046; 71100; 74177; 81003; 85379; J1885; J3490

== ENCOUNTER 2020-06-08 14:21 | Emergency (ER) | payer MEDICAID, SELFPAY ==
[2020-06-08 14:25] VITALS: BP 179/93; PULSE 72; RESP 16; TEMP 36.7; O2SAT 94
[2020-06-08 14:30] VITALS: RESP 20
--- NOTE | 2020-06-08 14:49 | ED.GENADUL_ITS ---
Discharge Plan Disposition Patient Disposition: HOME Condition: Stable Discharge Details Chief Complaint: GenMedical Clinical Impression: Lumbago Primary Care Provider: Brooke Golden ED Provider: Kulwinder Boone Home Meds and New Rx's Prescriptions: New cyclobenzaprine 10 mg tablet 10 mg PO TID PRNQty: 20 RF: 0 Continued ASPIRIN 81 MG tablet 1 tab PO DAILY RF: 0 ascorbic acid (vitamin C) [Vitamin C] 500 MG tablet 1 tab PO DAILY RF: 0 garlic 1 EACH capsule 1 cap PO DAILY RF: 0 cholecalciferol (vitamin D3) 1,000 UNIT capsule 1 cap PO DAILY RF: 0 ginkgo biloba 400 MG capsule 1 cap PO DAILY RF: 0 EPINEPHRINE 0.3 MG/0.3 ML DISP.SYRIN 0.3 mg IM PRN RF: 0 ibuprofen 600 mg tablet 600 mg PO TID PRN (Reason: pain) Qty: 100 RF: 4 atenolol 50 mg tablet 50 mg PO DAILY Qty: 90 RF: 12 citalopram 20 mg tablet 20 mg PO DAILY Qty: 90 RF: 12 atorvastatin [Lipitor] 10 mg tablet 10 mg PO DAILY Qty: 90 RF: 3 propranolol 10 mg tablet 10 mg PO BID PRN (Reason: anxiety) Qty: 180 RF: 4 hydrocodone-acetaminophen 5-325 mg tablet 1 tab PO TID MDD 3 PRN (Reason: pain) Qty: 15 RF: 0 nicotine (polacrilex) 2 mg gum 2 mg BC Q2H Qty: 100 RF: 2 acetaminophen 325 mg Tablet 650 mg PO DIRECTED PRNRF: 0 gabapentin 300 mg capsule 300 mg PO TID PRNRF: 0 Discharge Instructions Instructions: Back Pain (ED) Additional Instructions: your pain is most likely from musculoskeletal causes of pain such as a strain or muscle spasm follow up with your primary care provider within a week and have your blood pressure rechecked at this time as well do not take the cyclobenzaprine with the hydrocodone and do not drive or drink alcohol if you take this medicine return to the emergency department for severe worsening pain, if you feel more ill or have fevers or abdominal pain Medical Decision Making 59 yo male with hx of hld, degenerative cervical interveteral disc for which he is on chronic opiates and hasn't had a dose since yesterday, htn, who comes in with cc of right lower to mid back pain similar to when he was here in March and had ct showing renal cyst otherwise no findings. Saw his pcp the next day who felt it was more likely musculoskeletal and pain resolved in a few days. He had been doing well, bent over to get his mail when pain started. Denies abdominal pain, fevers, chest pain, dyspnea, vomit. Denies ivdu. Has normal gait, no saddle anesthesia, normal reflexes in the legs and 5/5 strength and normal sensation in the legs with intact pulses, no findings to suggest cauda equina or sea. He localizes the pain to the right lower back, no midline pain, has reproducible pain in this area, no cva tenderness. His symptoms seem most likely musculoskeletal vs disc herniation. No infectious symptoms. 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 Will also obtain UA to evaluate for possible pyelo although unliekly and unlikely kidney stone given none seen with similar pain in March patient ua unremarkable and he feels better still no concerning findings on exam and pain is positional so suspect musculoskeletal cause of his pain. Discussed repeating CT but he declined as it was essentially negative other than the renal cyst last time and would prefer close f/u with pcp and return precautions given Differential Diagnosis Differential Diagnosis: lumbago, kidney stone, muscle spasm, disc herniation HPI General Mode of arrival: ambulatory . Date/Time Provider Initiated Documentation: 06/08/20 14:25 . Limitations to Documentation: no limitations . Information obtained by: patient . History of Present Illness 59 year old M presents to the emergency department with the chief complaint of right sided back pain, described as moderate, Quality is described as aching, and it has been constant. No relieving factors improve symptom(s), No exacerbating factors reported . Patient did receive the following treatments prior to arrival, NSAID Related Data Home Medications Medication Instructions Recorded Confirmed Aspirin 1 tab PO DAILY tab-cap 02/13/13 06/08/20 Epinephrine 0.3 mg IM PRN 02/13/13 06/08/20 ascorbic acid (vitamin C) [Vitamin 1 tab PO DAILY 02/13/13 06/08/20 C] cholecalciferol (vitamin D3) 1 cap PO DAILY 02/13/13 06/08/20 garlic 1 cap PO DAILY 02/13/13 06/08/20 ginkgo biloba 1 cap PO DAILY 02/13/13 06/08/20 ibuprofen 600 mg tablet 600 mg PO TID PRN #100 tab 01/24/19 06/08/20 atenolol 50 mg tablet 50 mg PO DAILY #90 tab-cap 07/21/19 06/08/20 atorvastatin 10 mg tablet 10 mg PO DAILY #90 tab 02/17/20 06/08/20 citalopram 20 mg tablet 20 mg PO DAILY #90 tab-cap 02/17/20 06/08/20 propranolol 10 mg tablet 10 mg PO BID PRN #180 tab-cap 02/17/20 06/08/20 acetaminophen 650 mg PO DIRECTED PRN 03/23/20 06/08/20 gabapentin 300 mg PO TID PRN 03/23/20 06/08/20 hydrocodone 5 mg-acetaminophen 325 1 tab PO TID PRN #15 tab-cap MDD 3 05/24/20 06/08/20 mg tablet nicotine (polacrilex) 2 mg gum 2 mg BC Q2H #100 each 05/24/20 06/08/20 cyclobenzaprine 10 mg PO TID PRN #20 tab 06/08/20 Previous Rx's Medication Instructions Recorded ibuprofen 600 mg tablet 600 mg PO TID PRN #100 tab 01/24/19 atenolol 50 mg tablet 50 mg PO DAILY #90 tab-cap 07/21/19 atorvastatin 10 mg tablet 10 mg PO DAILY #90 tab 02/17/20 citalopram 20 mg tablet 20 mg PO DAILY #90 tab-cap 02/17/20 propranolol 10 mg tablet 10 mg PO BID PRN #180 tab-cap 02/17/20 hydrocodone 5 mg-acetaminophen 325 1 tab PO TID PRN #15 tab-cap MDD 3 05/24/20 mg tablet nicotine (polacrilex) 2 mg gum 2 mg BC Q2H #100 each 05/24/20 cyclobenzaprine 10 mg PO TID PRN #20 tab 06/08/20 Allergies Allergy/AdvReac Type Severity Reaction Status Date / Time venom-honey bee Allergy Syncope Unverified 06/08/20 14:29 morphine AdvReac N/V Unverified 06/08/20 14:29 General Stated Complaint: GenMedical LANEY: 3 Review of Systems All systems reviewed & are unremarkable except as noted in HPI and below Constitutional Constitutional: Denies chills, Denies fever(s) and Denies weakness Cardiovascular Cardiovascular: Denies chest pain and Denies dyspnea Respiratory Respiratory: Denies cough and Denies dyspnea Gastrointestinal Gastrointestinal: Denies abdominal pain, Denies nausea and Denies vomiting Genitourinary Genitourinary: Denies dysuria Musculoskeletal Musculoskeletal: Denies joint swelling Integumentary/Breasts Skin/Breast: Denies rash Neurologic Neurologic: Denies weakness Psychiatric Psychiatric: Denies depression PFSH Medical History Anxiety (Chronic 12/18/16) Chronic pain disorder (Chronic 06/20/12) 02/07/16; NARCOTIC CONTRACT 07/03/17; CONTROLLED SUBSTANCE AGREEMENT~RENEWED Degeneration of cervical intervertebral disc (Chronic 09/05/10) Depressive disorder (Chronic 09/05/10) Economic problem (Chronic) Essential hypertension (Chronic) Hyperlipidemia (Chronic 05/27/13) Lumbago (Chronic 09/05/10) Onychomycosis (Chronic 09/05/10) Plantar fascia syndrome (Resolved) 10/21/15 Shoulder pain (Resolved 04/20/14) partiel tear of supraspinatus mri 01/17 Smoker (Chronic 09/05/10) Surgical History Repair of inguinal hernia (~1979) RIGHT Family History Mother , 89 Dementia Father , 74 Dementia Sister Celiac disease Brother No problems noted. Maternal Grandfather No problems noted. Paternal Grandfather No problems noted. Maternal Grandmother , 84 Heart disease Paternal Grandmother No problems noted. Uncle [place]'s disease Sister No problems noted. Daughter No problems noted. Social History Smoking/Tobacco Use Status: Current every day Tobacco Type: cigarettes Alcohol Intake: former Drug use: Occasionally Substance use type: painkillers Details: prescription- hydrocodone 5 mg x 15 pills per month. Is out this month. Household members: spouse, children and other Details: Grandchildren Pets and animals: Yes Pets and animals: bird(s) Sexually active: Yes Do you think of yourself as: straight/heterosexual Current gender identity: male What is your relationship status?: How often do you talk on the phone with friends or family?: once per week How often do you get together with friends or relatives?: decline to answer How often do you attend episcopal or mu-ism services?: decline to answer Do you belong to any clubs or organized social groups?: decline to answer Panel score (0-1 are the most socially isolated patients): 1 What type of physical activity do you participate in: decline to answer Duration: 15-30 minutes/day Frequency: decline to answer Nahomi/Synagogue: [employer] Special nahomi needs: No Seatbelt use: always Drive intox or ride w/intox independent driver: No Do you feel safe at home: Yes Do you feel safe in your relationship?: Yes Exam Const General: no acute distress Orientation: alert HENMT Head: normal to inspection Ears: external ears normal General nose exam: external nose normal Mouth: moist mucous membranes Eyes General: appearance normal, both eyes and all related structures Neck Neck: normal visual inspection Resp Effort & Inspection: normal respiratory effort and able to speak in complete sentences Cardio Rate: regular rate GI Palpation: soft and nontender Male General Exam: No ecchymosis and No edema Skin General skin exam: no rashes or lesions noted Neuro General: patient alert and patient oriented x3 Extrem General: normal to inspection Psych Mental Status: mental status grossly normal Course Vital Signs Vital signs: Vital Signs Temperature 36.7 C 06/08/20 14:25 Pulse 72 06/08/20 14:25 Respiratory Rate 16 06/08/20 14:25 Blood Pressure 179/93 H 06/08/20 14:25 Pulse Oximetry 94 L 06/08/20 14:25 Temperature 36.7 C 06/08/20 14:25 Temperature Source Skin 06/08/20 14:25 Pulse 72 06/08/20 14:25 Respiratory Rate 20 06/08/20 14:30 Respiratory Effort Non-Labored 06/08/20 14:30 Respiratory Depth Normal 06/08/20 14:30 Respiratory Pattern Normal 06/08/20 14:30 Blood Pressure 179/93 H 06/08/20 14:25 Blood Pressure Position Sitting 06/08/20 14:25 Pulse Oximetry 94 L 06/08/20 14:25 Pain Level 8 06/08/20 14:43
[2020-06-08] MEDS: HYDROmorphone 2 MG/ML VIAL 1 MG IM (14:51)
[2020-06-08] MEDS: Ketorolac 15 MG/ML VIAL IM (14:52)
[2020-06-08 15:01] LABS: Bilirubin Negative (Negative); Blood Negative (Negative); Clarity Clear (Clear); Glucose Negative (Negative); Ketones Negative (Negative); Leukocyte Esterase Negative (Negative); Nitrite Negative (Negative); Specific Gravity 1.025 (1.005-1.025); Urobilinogen 0.2 EU/dL (Up TO 0.2); pH 6.5 (5-8)
[2020-06-08 15:35] VITALS: BP 182/89; O2SAT 97
== END 2020-06-08 15:38 | disposition home or self-care (01) ==
PROVIDERS: Emergency Provider Emergency Medicine; PCP Family Medicine
DX: M54.5 Low back pain (principal); I10 Essential (primary) hypertension
CPT/HCPCS: 96372; 99284; 81003; 99283; J1885

== ENCOUNTER 2020-06-19 19:33 | Emergency (ER) | payer MEDICAID, SELFPAY ==
[2020-06-19 19:36] VITALS: BP 186/101; PULSE 68; RESP 20; TEMP 36.9; O2SAT 99
--- NOTE | 2020-06-19 20:00 | DI.CT_ITS ---
EXAM: CT RENAL COLIC WO CLINICAL HISTORY: rt flank pain. TECHNIQUE: Imaging Protocol: Axial computed tomography images with coronal and sagittal reformatted images were created and reviewed. CONTRAST MATERIAL: Noncontrast COMPARISON: No exams were available for comparison FINDINGS: ABDOMEN: Liver: Normal density. No measurable mass. Gallbladder and biliary tract: No radiodense calculus or dilation. Pancreas: Normal density, no abnormal calcifications or inflammatory process. Spleen: Normal. Kidneys: Normal size, contour and axis. No radiodense stones or obstructive uropathy. No masses seen. Bilateral renal cysts, unchanged. Adrenal glands: No masses seen. Abdominal Aorta: Abdominal portion non-dilated. Mild atherosclerotic changes. PELVIS: Bladder: Symmetric distention, no gross wall thickening. Mildly enlarged prostate. Bowel: No obstruction or bowel wall thickening. Normal appendix. Mild sigmoid diverticulosis. No e vidence of diverticulitis. Peritoneal cavity: No ascites, collection or mesenteric inflammatory response. Bones: Degenerative disc changes and facet degenerative changes at L4-5. IMPRESSION: No evidence of hydronephrosis or urinary tract calculi. No acute abnormalities seen in the abdomen o r pelvis. RADIATION DOSE DELIVERED: 744.35mGy.cm Total DLP DATA REPOSITORY: All CT scans at this facility are submitted to the National Radiology Data Registry (NRDR) Dose Index Registry (DIR) with the [employer] (ACR). RADIATION OPTIMIZATION: All CT scans at this facility use at least one of these dose optimization te chniques: automated exposure control; mA and/or kV adjustment per patient size (includes targeted exa ms where dose is matched to clinical indication); or iterative reconstruction.
--- NOTE | 2020-06-19 20:02 | ED.GENADUL_ITS ---
Discharge Plan Disposition Patient Disposition: HOME Condition: Stable Discharge Details Chief Complaint: Nk/Back Pain Clinical Impression: Acute right-sided back pain, Hypertension Primary Care Provider: Brooke Golden ED Provider: John Whitlock Home Meds and New Rx's Prescriptions: Continued ASPIRIN 81 MG tablet 1 tab PO DAILY RF: 0 ascorbic acid (vitamin C) [Vitamin C] 500 MG tablet 1 tab PO DAILY RF: 0 garlic 1 EACH capsule 1 cap PO DAILY RF: 0 cholecalciferol (vitamin D3) 1,000 UNIT capsule 1 cap PO DAILY RF: 0 ginkgo biloba 400 MG capsule 1 cap PO DAILY RF: 0 EPINEPHRINE 0.3 MG/0.3 ML DISP.SYRIN 0.3 mg IM PRN RF: 0 ibuprofen 600 mg tablet 600 mg PO TID PRN (Reason: pain) Qty: 100 RF: 4 citalopram 20 mg tablet 20 mg PO DAILY Qty: 90 RF: 12 atorvastatin [Lipitor] 10 mg tablet 10 mg PO DAILY Qty: 90 RF: 3 propranolol 10 mg tablet 10 mg PO BID PRN (Reason: anxiety) Qty: 180 RF: 4 nicotine (polacrilex) 2 mg gum 2 mg BC Q2H Qty: 100 RF: 2 acetaminophen 325 mg Tablet 650 mg PO DIRECTED PRNRF: 0 gabapentin 300 mg capsule 300 mg PO TID PRNRF: 0 No Action clonazepam 1 mg tablet,disintegrating 1 mg PO BID PRN (Reason: spasms) Qty: 20 RF: 0 metoprolol succinate 100 mg tablet extended release 24 hr 100 mg PO DAILY Qty: 90 RF: 5 hydrocodone-acetaminophen 5-325 mg tablet 1 tab PO TID MDD 3 PRN (Reason: pain) Qty: 15 RF: 0 Discharge Instructions Instructions: Hypertension (ED), Back Pain (ED) Additional Instructions: Please follow-up with your primary care physician. Call on Sunday. Be sure to discuss your elevated blood pressure. Be sure to discuss CT findings including suggestion of hypodense mass in the upper portion of the left kidney incompletely visualized. This may need additional outpatient diagnostic work- up. Official radiology interpretation will be provided on Sunday. Use lidocaine patches for pain. These are [id number]. Take ibuprofen as prescribed for pain. Return to the ER for any worsening or new concerning symptoms. Referrals: Brooke Golden MD, [place] [Primary Care Provider] - Discharge Data Discharge Date/Time-TO BE ENTERED AT DEPARTURE: 06/19/20 22:40 Medical Decision Making 20:00??59-year-old male with history of hypertension, right renal cyst, here with right mid back pain that started just prior to arrival, same as prior flares. Consider cyst rupture versus renal stone versus paraspinal muscle spasm. Plan to obtain CT of the abdomen pelvis. I will give Toradol 30 mg IM for di scomfort. Patient is hypertensive. He notes history of hypertension. He has been taking antihypertensive. Suspect pain is contributing today. Did obtain and reviewed past medical record, CT the abdomen pelvis performed 03/23/2020: Kidneys: Normal size, contour and axis. No radiodense stones or obstructive uropathy. There are bilateral simple renal cysts. The largest measures 5.2 cm and is located in the right kidney. No solid renal mass. Abdominal Aorta: Abdominal portion non-dilated. Atherosclerosis. No acute intra-abdominal or pelvic abnormality. Small amount of subcutaneous gas overlying the left gluteal muscles. Please correlate clinically. Has there been a recent injection? --Patient reassessed and notes continues to have pain. Requesting additional analgesic. Patient agreeable to lidocaine patch and oxycodone. Of note he does state that he is prescribed oxycodone by PCP for his chronic intermittent neck pain. 22:11 --patient reassessed and notes significant improvement in pain. Patient requesting discharge. Plan will be to discharge with outpatient follow-up with PCP. Patient requesting additional analgesic to go. I explained that he should follow-up with his primary care physician regarding continued oxycodone which he is prescribed already. I advised that he continue to use lidocaine patches. Usual customary discharge instructions were reviewed with the patient. HPI General Mode of arrival: ambulatory . Date/Time Provider Initiated Documentation: 06/19/20 19:35 . Limitations to Documentation: no limitations . Information obtained by: patient . HPI Narrative: 59-year-old male presents with chief complaint of back pain. Patient notes right posterior mid back pain that started shortly before arrival and has been persistent. Pain is constant. Pain came on suddenly when he was reaching for a car door. Pain is worse with certain positions. Patient notes he had the exact same pain on recent ED evaluation and another episode in the past. He notes that he has a known kidney cyst. No history of kidney stones. Denies associated hematuria or dysuria. No abdominal pain. No chest pain. No shortness of breath. Related Data Home Medications Medication Instructions Recorded Confirmed Aspirin 1 tab PO DAILY tab-cap 02/13/13 06/22/20 Epinephrine 0.3 mg IM PRN 02/13/13 06/22/20 ascorbic acid (vitamin C) [Vitamin 1 tab PO DAILY 02/13/13 06/22/20 C] cholecalciferol (vitamin D3) 1 cap PO DAILY 02/13/13 06/22/20 garlic 1 cap PO DAILY 02/13/13 06/22/20 ginkgo biloba 1 cap PO DAILY 02/13/13 06/22/20 ibuprofen 600 mg tablet 600 mg PO TID PRN #100 tab 01/24/19 06/22/20 atorvastatin 10 mg tablet 10 mg PO DAILY #90 tab 02/17/20 06/22/20 citalopram 20 mg tablet 20 mg PO DAILY #90 tab-cap 02/17/20 06/22/20 propranolol 10 mg tablet 10 mg PO BID PRN #180 tab-cap 02/17/20 06/22/20 acetaminophen 650 mg PO DIRECTED PRN 03/23/20 06/22/20 gabapentin 300 mg PO TID PRN 03/23/20 06/22/20 nicotine (polacrilex) 2 mg gum 2 mg BC Q2H #100 each 05/24/20 06/22/20 clonazepam 1 mg disintegrating 1 mg PO BID PRN #20 tab 06/22/20 06/22/20 tablet hydrocodone 5 mg-acetaminophen 325 1 tab PO TID PRN #15 tab-cap MDD 3 06/22/20 mg tablet metoprolol succinate 100 mg 100 mg PO DAILY #90 tab 06/22/20 06/22/20 tablet,extended release 24 hr Previous Rx's Medication Instructions Recorded ibuprofen 600 mg tablet 600 mg PO TID PRN #100 tab 01/24/19 atorvastatin 10 mg tablet 10 mg PO DAILY #90 tab 02/17/20 citalopram 20 mg tablet 20 mg PO DAILY #90 tab-cap 02/17/20 propranolol 10 mg tablet 10 mg PO BID PRN #180 tab-cap 02/17/20 nicotine (polacrilex) 2 mg gum 2 mg BC Q2H #100 each 05/24/20 clonazepam 1 mg disintegrating 1 mg PO BID PRN #20 tab 06/22/20 tablet hydrocodone 5 mg-acetaminophen 325 1 tab PO TID PRN #15 tab-cap MDD 3 06/22/20 mg tablet metoprolol succinate 100 mg 100 mg PO DAILY #90 tab 06/22/20 tablet,extended release 24 hr Allergies Allergy/AdvReac Type Severity Reaction Status Date / Time venom-honey bee Allergy Syncope Unverified 06/22/20 13:55 oxycodone AdvReac Intermediate hallucinati Verified 06/22/20 14:16 ons morphine AdvReac N/V Unverified 06/22/20 13:55 General Stated Complaint: Nk/Back Pain LANEY: 4 Review of Systems All systems reviewed & are unremarkable except as noted in HPI and below Constitutional Constitutional: Denies fever(s) Gastrointestinal Gastrointestinal: Denies abdominal pain PFSH Medical History Anxiety (Chronic 12/18/16) Chronic pain disorder (Chronic 06/20/12) 02/07/16; NARCOTIC CONTRACT 07/03/17; CONTROLLED SUBSTANCE AGREEMENT~RENEWED Degeneration of cervical intervertebral disc (Chronic 09/05/10) Depressive disorder (Chronic 09/05/10) Economic problem (Chronic) Essential hypertension (Chronic) Hyperlipidemia (Chronic 05/27/13) Lumbago (Chronic 09/05/10) Onychomycosis (Chronic 09/05/10) Plantar fascia syndrome (Resolved) 10/21/15 Shoulder pain (Resolved 04/20/14) partiel tear of supraspinatus mri 01/17 Smoker (Chronic 09/05/10) Surgical History Repair of inguinal hernia (~1979) RIGHT Family History Mother , 89 Dementia Father , 74 Dementia Sister Celiac disease Brother No problems noted. Maternal Grandfather No problems noted. Paternal Grandfather No problems noted. Maternal Grandmother , 84 Heart disease Paternal Grandmother No problems noted. Uncle Charlie's disease Sister No problems noted. Daughter No problems noted. Social History Smoking/Tobacco Use Status: Current every day Tobacco Type: cigarettes Alcohol Intake: former Drug use: Occasionally Substance use type: painkillers Details: prescription- hydrocodone 5 mg x 15 pills per month. Is out this month. Household members: spouse, children and other Details: Grandchildren Pets and animals: Yes Pets and animals: bird(s) Sexually active: Yes Do you think of yourself as: straight/heterosexual Current gender identity: male What is your relationship status?: How often do you talk on the phone with friends or family?: once per week How often do you get together with friends or relatives?: decline to answer How often do you attend uatsdin or rastafarian services?: decline to answer Do you belong to any clubs or organized social groups?: decline to answer Panel score (0-1 are the most socially isolated patients): 1 What type of physical activity do you participate in: decline to answer Duration: 15-30 minutes/day Frequency: decline to answer Nahomi/Methodist: Evangelical Special nahomi needs: No Seatbelt use: always Drive intox or ride w/intox school bus driver: No Do you feel safe at home: Yes Do you feel safe in your relationship?: Yes Exam Const General: cooperative and no acute distress HENMT Mouth: moist mucous membranes Eyes Conjunctivae: normal conjunctivae Sclera: normal sclerae Neck Neck: trachea midline and supple Resp Auscultation: clear to auscultation bilaterally, no rales, no rhonchi and no wheezes Cardio Jugular venous pressure: no JVD Rate: regular rate and not tachycardic Rhythm: regular rhythm GI Palpation: soft, not firm, no guarding, no masses, not rigid and nontender Back/Spine/Pelvis Cervical Spine: No cervical spinal tenderness Thoracic/Lumbar Spine: paraspinal tenderness (Minimal right mid thoracic), No thoracic spinal tenderness and No lumbar spinal tenderness Skin General skin exam: no rashes or lesions noted Neuro General: patient alert, patient awake, patient oriented x3 and tone normal Extrem General: no edema Psych Appearance: grossly normal Mental Status: mental status grossly normal Course Vital Signs Vital signs: Vital Signs Temperature 36.9 C 06/19/20 19:36 Pulse 68 06/19/20 19:36 Respiratory Rate 20 06/19/20 19:36 Blood Pressure 186/101 H 06/19/20 19:36 Pulse Oximetry 99 06/19/20 19:36 Temperature 36.9 C 06/19/20 19:36 Temperature Source Skin 06/19/20 19:36 Pulse 68 06/19/20 19:36 Respiratory Rate 20 06/19/20 19:36 Respiratory Effort Non-Labored 06/19/20 19:40 Blood Pressure 186/101 H 06/19/20 19:36 Pulse Oximetry 99 06/19/20 19:36 Oxygen Delivery Method Room Air 06/19/20 19:36 Oxygen Flow Rate 0 06/19/20 19:36 Pain Level 8 06/19/20 19:40
[2020-06-19] MEDS: Ketorolac 30 MG/ML VIAL IM (20:13)
[2020-06-19 20:21] LABS: Bilirubin Negative (Negative); Blood Negative (Negative); Clarity Clear (Clear); Glucose Negative (Negative); Ketones Negative (Negative); Leukocyte Esterase Negative (Negative); Nitrite Negative (Negative); Urobilinogen 0.2 EU/dL (Up TO 0.2)
--- NOTE | 2020-06-19 20:34 | DI.VRAD_ITS ---
Addendum created by Oseas Champagne MD on 06/19/2020 11:55:17 PM EDT Addendum: Examination performed was a ?renal colic exam,? which only extends from the superior extent of the kidneys and through the pelvis, and therefore excludes portions of the upper abdomen. This is as opposed to a complete ?CT abdomen and pelvis without contrast? exam, which starts above the diaphragm to include the entirety of the upper abdomen. Initial report created on 06/19/2020 8:34:13 PM EDT PROCEDURE INFORMATION: Exam: CT Abdomen And Pelvis Without Contrast Exam date and time: 06/19/2020 8:02 PM Age: 59 years old Clinical indication: Abdominal pain; Right; Patient HX: RT flank pain TECHNIQUE: Imaging protocol: Computed tomography of the abdomen and pelvis without contrast. COMPARISON: CT ABDOMEN PELVIS W 03/23/2020 6:13 PM FINDINGS: Entire upper abdomen not visualized. Suggestion of a hypodense mass in the upper portion of the left kidney incompletely visualized. Right renal cyst unchanged from the prior examination. No renal or ureteral stones. Degenerative disc and facet disease at L4-L5. Normal appearing solid organs. No intestinal obstruction. No obstructive uropathy. No free fluid. No free air. No inflammatory changes. IMPRESSION: No specific etiology identified for the patient's symptoms. Dictated and Authenticated by: Oseas Champagne MD. Ordering:KARAN Lopez MD
[2020-06-19] MEDS: oxyCODONE 5 MG TAB PO (21:23)
[2020-06-19] MEDS: Lidocaine 5% Patch 1 PATCH TP (21:26)
[2020-06-19 22:09] VITALS: BP 150/98; PULSE 79; RESP 16; O2SAT 95
== END 2020-06-19 22:40 | disposition home or self-care (01) ==
PROVIDERS: Emergency Provider Student in an Organized Health Care Education/Training Program; PCP Family Medicine
DX: M54.6 Pain in thoracic spine (principal); I10 Essential (primary) hypertension; R93.422 Abnormal radiologic findings on diagnostic imaging of left kidney
CPT/HCPCS: 96372; 99284; 74176; 81003; J1885

== ENCOUNTER 2021-02-24 02:20 | Outpatient (CLI) | payer MEDICAID, SELFPAY ==
--- NOTE | 2021-02-24 07:15 | DI.RAD_ITS ---
EXAM: XR HIP RT COMPLETE AP PELVIS CLINICAL HISTORY: r hip pain,M25.551. TECHNIQUE: 2D digital imaging was performed. COMPARISON: CR BILATERAL HIPS ADULT from 04/22/2014 FINDINGS: No evidence of pelvic nor hip fracture. No hip joint space narrowing evident. No osteophytes. In s acroiliac joints appear unremarkable. Bone density is normal. No ominous osseous lesions. IMPRESSION: DATA REPOSITORY: RADIATION DOSE DELIVERED:
--- NOTE | 2021-02-24 07:15 | DI.CTLCSR_ITS ---
EXAM: CT CHEST LUNG CANCER SCREEN CLINICAL HISTORY: Smoker. Low-dose lung cancer screening TECHNIQUE: Imaging Protocol: Low Dose Technique CONTRAST MATERIAL: None COMPARISON: Chest x-ray March 2020. FINDINGS: CHEST: LUNGS: There are no ominous pulmonary nodules. There are no confluent infiltrates. No pleural effusi ons. MEDIASTINUM: There is no obvious hilar nor mediastinal adenopathy. Few small subcarinal lymph nodes are noted CARDIAC: Heart size is normal. There is no pericardial effusion.Caliber of the thoracic aorta is wit hin normal limits. OTHER: Slight thickening of both adrenal glands is noted. In addition there is a suggestion of a nod ule in the superior pole of the left kidney which measures 2 by 2 cm and requires workup to rule out malignancy. Kidneys are only partially included on the field of view. OSSEOUS: No significant osseous lesions.. IMPRESSION: 1. No significant pulmonary findings. No significant pulmonary nodules no pleural effusions. 2. However, there is a 2 centimeter nodule in the superior pole the left kidney which is difficult to assess on this type of study but may be a solid lesion. This requires workup to rule out malignancy , starting with ultrasound examination. 3. Lung RADS Cat 1S - Negative: No nodules and definitely benign nodules. However, this patient requ ires workup of an incidental finding in the left kidney which may be a solid nodule, as described abo ve. Lung-RADS 1.0 CATEGORIES: Category 0 - Prior chest CT exam(s) being located for comparison. Category 1 - Annual screening in 12 months. No nodules or definitely benign nodules. Category 2 - Annual screening in 12 months. Benign appearance. Nodules with low likelihood of becomin g active cancer. Category 3 - 6-month follow-up. Probably benign. Short-term follow-up suggested. Nodules with low lik elihood of becoming active cancer. Category 4A - 3-month follow-up and CT/PET if >8 mm in size. Suspicious finding. Findings which requi re additional testing. Category 4B - Findings which require additional testing and tissue sampling. Modifier S- Potentially clinically significant findings (non lung cancer) RADIATION DOSE DELIVERED: 96.53mGy.cm Total DLP 2.21mGy CTDIvol DATA REPOSITORY: All CT scans at this facility are submitted to the National Radiology Data Registry (NRDR) Dose Index Registry (DIR) with the [employer] (ACR). RADIATION OPTIMIZATION: All CT scans at this facility use at least one of these dose optimization te chniques: automated exposure control; mA and/or kV adjustment per patient size (includes targeted exa ms where dose is matched to clinical indication); or iterative reconstruction.
--- NOTE | 2021-02-24 10:36 | DI.RAD_ITS ---
EXAM: XR SHOULDER LT COMPLETE 2+V CLINICAL HISTORY: left shoulder pain,M25.519. TECHNIQUE: 2D digital imaging was performed. COMPARISON: CR RIGHT SHOULDER COMPLETE from 06/15/2015 FINDINGS: There is no evidence of fracture or dislocation. No abnormal soft tissue calcifications evident in t he subacromial space.. No Hill-Sachs deformity. No obvious bony Bankart lesion. There is no signif icant narrowing of the glenohumeral joint space. No osteophytes There is a calcification intimately associated with the cortex in the proximal diaphysis of the humer us which measures 8 x 3 millimeters. Possibly significant. Possibly in the biceps tendon sheath but appears slightly lower than typical finding at this location. Also noted is some erosion on the acromial side of the AC joint, without widening of the AC joint. N o prominent osteophytes at this level. IMPRESSION: 1. Subtle erosions on the acromial side of the AC joint. 2. 8 x 3 millimeter calcification intimately associated with the cortex of the proximal diaphysis of the humerus as described above. May or may not represent calcification within the biceps tendon rodriguez th versus subtle bony excrescence at this level. DATA REPOSITORY: RADIATION DOSE DELIVERED:
== END 2021-02-24 02:40 ==
PROVIDERS: PCP Family Medicine; Visit Provider Family Medicine
DX: M25.512 Pain in left shoulder (principal); M75.32 Calcific tendinitis of left shoulder; M25.551 Pain in right hip; Z12.2 Encounter for screening for malignant neoplasm of respiratory organs; F17.210 Nicotine dependence, cigarettes, uncomplicated; N28.89 Other specified disorders of kidney and ureter
CPT/HCPCS: 71271; 73030; 73502

== ENCOUNTER 2021-03-17 01:21 | Outpatient (CLI) | payer MEDICAID, SELFPAY ==
--- NOTE | 2021-03-17 09:30 | DI.US_ITS ---
Exam(s) US RENAL EXAM: US RENAL CLINICAL HISTORY: kidney masss seen on CT Scan, N28.89 TECHNIQUE: Ultrasound of both kidneys performed using standard protocol. COMPARISON: CT CT CHEST LUNG CANCER SCREEN from 02/24/[address] CHEST LUNG CANCER SCREEN from 02/24/2021 FINDINGS: RIGHT KIDNEY: Measures 10.3 cm in length. There is a 5 x 4.6 cm cyst in the inferior pole of the right kidney noted . No other focal right kidney findings. Normal cortical thickness and corticomedullary differentiat ion .No solid masses No intrarenal calculi nor hydronephrosis. LEFT KIDNEY: Measures 11.2 cm in length. There is an exophytic cyst off the superior pole of the left kidney sree uring 1.8 x 1.7 cm, this corresponding to the incidental finding on the recent chest CT scan. No kylah id masses seen in the left kidney. No calculi nor hydronephrosis. Normal cortical thickness and cor ticomedullary differentiation. URINARY BLADDER: Prevoid volume is 65 cc Postvoid volume is 4 cc Prostate gland measures 4.5 x 3.0 by 3.2 cm. No obvious bladder mass nor diverticuli evident. Ureterovesical jets: Not visualized. IMPRESSION: 1. There is an 18 x 17 millimeter exophytic cyst in the in superior pole left kidney which correspon ds to the 5th incidental finding on the recent chest CT scan. There is also a larger cyst measuring 5 cm in the inferior pole region of the opposite-right kidney. There are no solid renal masses, calc martínez, or hydronephrosis. 2. Prostate gland slightly prominent. Urinary bladder is not distended. DATA REPOSITORY:
== END 2021-03-17 01:41 ==
PROVIDERS: PCP Family Medicine; Visit Provider Family Medicine
DX: N28.89 Other specified disorders of kidney and ureter (principal); N28.1 Cyst of kidney, acquired; N40.0 Benign prostatic hyperplasia without lower urinary tract symptoms
CPT/HCPCS: 76770

== ENCOUNTER 2021-05-26 11:00 | Outpatient (CLI) | payer MEDICAID, SELFPAY ==
[2021-05-26 13:14] LABS: ALT 42 U/L (16-63); AST 25 U/L (15-37); Alkaline Phosphatase 122 U/L (46-116); Anion Gap 10.2 mmol/L (3-11); BUN 19 mg/dL (7-18); Bilirubin, Total 0.3 mg/dL (0.2-1.0); CO2 25.8 mmol/L (21.0-32.0); CREATININE 1.2 mg/dL (0.70-1.30); Calcium 9.2 mg/dL (8.5-10.1); Calculated LDL 100 mg/dL (<100); Chloride 107 mmol/L (98-107); Cholesterol 173 mg/dL (<200); Glucose 110 mg/dL (74-106); HDL Cholesterol 25 mg/dL (40-60); Potassium 4.8 mmol/L (3.5-5.1); Sodium 143 mmol/L (136-145); Total Protein 6.6 g/dL (6.4-8.2); Triglyceride 240 mg/dL (<150)
[2021-05-26 21:32] LABS: PSA, Screening 12.6 ng/mL (0.0-4.5)
== END 2021-05-26 11:01 | disposition home or self-care (01) ==
LOC: LOS 11:00
PROVIDERS: PCP Family Medicine; Referring Provider Family Medicine; Visit Provider Family Medicine
DX: Z13.228 Encounter for screening for other metabolic disorders (principal); Z13.220 Encounter for screening for lipoid disorders; Z12.5 Encounter for screening for malignant neoplasm of prostate; Z00.00 Encounter for general adult medical examination without abnormal findings
CPT/HCPCS: 36415; 80053; 80061; 84153

== ENCOUNTER 2021-06-10 01:30 | Outpatient (CLI) | payer MEDICAID, SELFPAY | END 2021-06-10 01:31 | disposition home or self-care (01) | LOC: LOS 01:30 | PROVIDERS: PCP Family Medicine; Visit Provider Family Medicine | DX: R97.20 Elevated prostate specific antigen [PSA] (principal) | CPT/HCPCS: 36415; 84154 ==

== ENCOUNTER 2021-07-25 16:47 | Outpatient (REF) | payer MEDICAID, SELFPAY ==
[2021-07-25 19:51] LABS: Abs Immature Grans 0.04 10^3/uL (0.0-0.06); Absolute Basophil Count 0.07 10^3/uL (0.0-0.2); Absolute Eosinophil Count 0.15 10^3/uL (0.0-0.7); Absolute Lymphocyte Count 3.28 10^3/uL (1.2-3.4); Absolute Monocyte Count 0.54 10^3/uL (0.1-0.8); Absolute Neutrophil Count 6.54 10^3/uL (1.2-6.7); Basophils % 0.7; Eosinophils % 1.4; HCT 45.7 % (40.0-50.0); HGB 14.7 g/dL (13.5-17.5); Immature Grans % 0.4; Lymphocytes % 30.9; MCH 29.6 pg (27.0-33.0); MCHC 32.2 % (32.0-36.0); MPV 12.1 fL (8.0-11.0); Monocytes % 5.1; Neutrophils % 61.5; Nucleated RBC 0 %; Platelet Count 212 10^3/uL (130-400); RBC 4.97 10^6/uL (4.36-5.78); RDW 12.7 % (11.8-14.1); RDW-SD 42.7 fL; WBC 10.62 10^3/uL (4.4-10.8)
[2021-07-25 19:55] LABS: ESR 21 mm/hr (0-20)
[2021-07-25 20:12] LABS: Hemoglobin A1C 6.2 % (<5.7)
[2021-07-25 21:01] LABS: ALT 45 U/L (16-63); AST 22 U/L (15-37); Albumin 3.9 g/dL (3.4-5.0); Alkaline Phosphatase 154 U/L (46-116); Anion Gap 8.4 mmol/L (3-11); BUN 14 mg/dL (7-18); Bilirubin, Total 0.3 mg/dL (0.2-1.0); CO2 29.6 mmol/L (21.0-32.0); CREATININE 1.1 mg/dL (0.70-1.30); Calcium 9.5 mg/dL (8.5-10.1); Chloride 105 mmol/L (98-107); Glucose 139 mg/dL (74-106); Potassium 3.9 mmol/L (3.5-5.1); Sodium 143 mmol/L (136-145); TSH (W/Ref FT4) 0.97 uIU/mL (0.36-3.74); Total Protein 6.8 g/dL (6.4-8.2); Uric Acid 6.9 mg/dL (3.5-7.2)
[2021-07-25 21:42] LABS: Vitamin B12 351 pg/mL (193-986)
== END 2021-07-25 16:48 | disposition home or self-care (01) ==
LOC: LBN 16:47
PROVIDERS: PCP Family Medicine; Visit Provider Family Medicine
DX: M25.59 Pain in other specified joint; E11.9 Type 2 diabetes mellitus without complications
CPT/HCPCS: 80053; 85652; 82607; 83036; 84443; 84550; 85025; 86140

== ENCOUNTER 2021-12-19 10:15 | Outpatient (REF) | payer MEDICAID, SELFPAY ==
[2021-12-19 14:34] LABS: *AMPHETAMINES SCREEN URINE Negative (Negative); *BARBITURATES SCREEN URINE Negative (Negative); *BENZODIAZEPINES SCREEN URINE Negative (Negative); Cannabinoids THC Negative (Negative); Cocaine Screen,Urine Negative (Negative); METHADONE URINE SCREEN Negative (Negative); OPIATES URINE SCREEN Positive (Negative)
[2021-12-19 14:36] LABS: Tricyclic Antidepressants Negative (Negative)
== END 2021-12-19 10:16 | disposition home or self-care (01) ==
LOC: LBN 10:15
PROVIDERS: PCP Family Medicine; Visit Provider Family Medicine
DX: G89.4 Chronic pain syndrome (principal); M25.59 Pain in other specified joint; Z79.891 Long term (current) use of opiate analgesic
CPT/HCPCS: 80307

== ENCOUNTER 2021-12-22 01:18 | Outpatient (CLI) | payer MEDICAID, SELFPAY ==
--- NOTE | 2021-12-22 07:00 | DI.RAD_ITS ---
Exam(s) XR ARTHRITIS SERIES EXAM: XR ARTHRITIS SERIES CLINICAL HISTORY: b/l hand pain,ARTHRALGIA.M25.50. TECHNIQUE: 2D digital imaging was performed. COMPARISON: No exams were available for comparison FINDINGS: BONES: No acute fracture is present. There is a benign-appearing cyst in the base of the 4th right me tacarpal. JOINTS: No dislocation present. Mild joint space narrowing and periarticular spurring is seen in the interphalangeal joints of the hand. The metacarpophalangeal joints are well maintained as are the a rticular surfaces in the wrist. There is no periarticular osteopenia. No soft tissue calcifications are appreciated. SOFT TISSUE: Normal. IMPRESSION: Mild degenerative changes of the hands. DATA REPOSITORY: RADIATION DOSE DELIVERED:
[2021-12-22 09:53] LABS: ESR 18 mm/hr (0-20)
[2021-12-22 10:15] LABS: Hemoglobin A1C 5.8 % (<5.7)
[2021-12-22 11:20] LABS: Uric Acid 5.9 mg/dL (3.5-7.2)
[2021-12-22 21:43] LABS: Rheumatoid Factor <8.6 IU/mL (<12.0)
[2021-12-23 09:54] LABS: Lyme Ab w Rflx to Lyme Confirm Negative (Negative)
[2021-12-23 13:27] LABS: ANA Interpretation Negative (Negative)
[2021-12-26 23:38] LABS: Anaplasma phagocytophilum Negative (Negative); B. miyamotoi PCR Negative (Negative); Babesia divergens/MO-1 Negative (Negative); Babesia duncani Negative (Negative); Babesia microti Negative (Negative); Ehrlichia chaffeensis Negative (Negative); Ehrlichia ewingii/canis Negative (Negative); Ehrlichia muris eauclairensis Negative (Negative)
== END 2021-12-22 01:19 | disposition home or self-care (01) ==
LOC: LBO 01:18
PROVIDERS: PCP Family Medicine; Visit Provider Family Medicine
DX: E11.9 Type 2 diabetes mellitus without complications; M25.541 Pain in joints of right hand; M25.542 Pain in joints of left hand; M18.11 Unilateral primary osteoarthritis of first carpometacarpal joint, right hand; M18.12 Unilateral primary osteoarthritis of first carpometacarpal joint, left hand
CPT/HCPCS: 36415; 85652; 87798; 73120; 83036; 84550; 86038; 86431; 86618

== ENCOUNTER 2023-06-25 13:14 | Outpatient (REF) | payer MEDICAID, SELFPAY ==
[2023-06-25 21:23] LABS: *AMPHETAMINES SCREEN URINE Negative (Negative); *BARBITURATES SCREEN URINE Negative (Negative); *BENZODIAZEPINES SCREEN URINE Negative (Negative); Cannabinoids THC Negative (Negative); Cocaine Screen,Urine Negative (Negative); METHADONE URINE SCREEN Negative (Negative); OPIATES URINE SCREEN Positive (Negative)
[2023-06-25 21:24] LABS: Tricyclic Antidepressants Negative (Negative)
== END 2023-06-25 13:15 | disposition home or self-care (01) ==
LOC: LBN 13:14
PROVIDERS: PCP Family Medicine; Visit Provider Family Medicine
DX: Z79.891 Long term (current) use of opiate analgesic; G89.4 Chronic pain syndrome
CPT/HCPCS: 80307

== ENCOUNTER → 2023-12-03 02:36 | Outpatient (CLI) | payer MEDICAID, SELFPAY ==
--- NOTE | 2023-12-03 11:31 | DI.RAD_ITS ---
Exam(s) XR SHOULDER LT COMPLETE 2+V EXAM: XR SHOULDER LT COMPLETE 2+V CLINICAL HISTORY: left shoulder pain,m25.512. TECHNIQUE: 2D digital imaging was performed of the left shoulder. Six images were obtained. AP, Gr ashey, Y-view and axillary views were obtained. COMPARISON: CR XR SHOULDER LT COMPLETE 2+V from 02/24/2021 FINDINGS: BONES: No acute fracture is present. No bony destructive lesion is seen. JOINTS: No dislocation present. Mild degenerative changes are seen at the acromioclavicular joint. T he glenohumeral joint is well maintained. SOFT TISSUE: The visualized lung turk are clear. IMPRESSION: Mild degenerative changes of the acromioclavicular joint. DATA REPOSITORY: RADIATION DOSE DELIVERED:
== END ==
PROVIDERS: PCP Family Medicine; Visit Provider Family Medicine
DX: M19.012 Primary osteoarthritis, left shoulder (principal)
CPT/HCPCS: 73030

== ENCOUNTER 2024-05-06 02:56 | Outpatient (CLI) | payer MEDICAID, SELFPAY ==
[2024-05-06 13:01] LABS: ALT 43 U/L (16-63); AST 22 U/L (15-37); Albumin 3.7 g/dL (3.4-5.0); Alkaline Phosphatase 125 U/L (46-116); Anion Gap 8.9 mmol/L (3-11); BUN 12 mg/dL (7-18); Bilirubin, Total 0.34 mg/dL (0.2-1.0); CO2 26.1 mmol/L (21.0-32.0); CREATININE 1.3 mg/dL (0.70-1.30); Calcium 9.3 mg/dL (8.5-10.1); Calculated LDL 87 mg/dL (<100); Chloride 105 mmol/L (98-107); Cholesterol 153 mg/dL (<200); Estimated GFR 61.35 (mL/min/1.73m2); Glucose 116 mg/dL (74-106); HDL Cholesterol 32 mg/dL (40-60); Potassium 4.4 mmol/L (3.5-5.1); Sodium 140 mmol/L (136-145); Total Protein 6.5 g/dL (6.4-8.2); Triglyceride 173 mg/dL (<150)
[2024-05-06 19:35] LABS: PSA, Screening 27.9 ng/mL (<=4.5)
== END 2024-05-06 02:57 | disposition home or self-care (01) ==
LOC: LOS 02:57
PROVIDERS: PCP Family Medicine; Visit Provider Family Medicine
DX: E11.9 Type 2 diabetes mellitus without complications (principal); Z00.00 Encounter for general adult medical examination without abnormal findings; I10 Essential (primary) hypertension
CPT/HCPCS: 36415; 80053; 80061; 84153; 83036

== ENCOUNTER → 2024-05-06 08:36 | Outpatient (CLI) | payer MEDICAID, SELFPAY ==
--- NOTE | 2024-05-06 10:55 | DI.RAD_ITS ---
Exam(s) XR KNEE LT 3V AP,LAT,MATT EXAM: XR KNEE LT 3V AP,LAT,MATT h CLINICAL HISTORY: left knee pain, M25.562. TECHNIQUE: 2D digital imaging was performed. COMPARISON: No exams were available for comparison FINDINGS: 3 views There is no evidence of fracture. There is a joint effusion noted. There are moderate degenerative changes in the medial compartment with moderate joint space narrowing of the medial compartment. No marginal osteophytes. Lateral compartment appears unremarkable as does the patellofemoral compartmen t. Bone density normal. No osseous lesions. No osteochondral defects. IMPRESSION: Moderate narrowing of the medial compartment. Joint effusion noted which signifies possible internal derangement. DATA REPOSITORY: RADIATION DOSE DELIVERED:
== END ==
PROVIDERS: PCP Family Medicine; Visit Provider Family Medicine
DX: M25.562 Pain in left knee (principal); M25.462 Effusion, left knee
CPT/HCPCS: 73562

== ENCOUNTER 2024-07-28 16:19 | Outpatient (REF) | payer MEDICAID, SELFPAY ==
[2024-07-28 21:27] LABS: *AMPHETAMINES SCREEN URINE Negative (Negative); *BARBITURATES SCREEN URINE Negative (Negative); *BENZODIAZEPINES SCREEN URINE Negative (Negative); Cannabinoids THC Negative (Negative); Cocaine Screen,Urine Negative (Negative); METHADONE URINE SCREEN Negative (Negative); OPIATES URINE SCREEN Positive (Negative)
[2024-07-28 21:30] LABS: Tricyclic Antidepressants Negative (Negative)
== END 2024-07-28 16:20 | disposition home or self-care (01) ==
LOC: LBN 16:19
PROVIDERS: PCP Family Medicine; Visit Provider Family Medicine
DX: G89.4 Chronic pain syndrome (principal); C61 Malignant neoplasm of prostate; C79.51 Secondary malignant neoplasm of bone; Z11.59 Encounter for screening for other viral diseases; F41.9 Anxiety disorder, unspecified; I10 Essential (primary) hypertension; R97.20 Elevated prostate specific antigen [PSA]; F17.200 Nicotine dependence, unspecified, uncomplicated
CPT/HCPCS: 80307

== ENCOUNTER 2024-09-15 14:00 | Outpatient (REF) | payer MEDICAID, SELFPAY ==
--- NOTE | 2024-09-15 13:20 | PROST_PTH ---
PATIENT: Gabe Montemayor LOC: [facility] U#:[id number] AGE/SX: 63/M ROOM: RE09/15/[address]: Markel Cartwright MD : 1960 BED: DIS: 09/15/2024 SPEC #: [id number] RECD: 09/15/24 17:42 STATUS: NADIA RE #: [id number] PIA: 09/15/24 13:[address]: Markel Cartwright DEPT: Surgical Specimen RECD BY: Michelle Giron ENTERED: 09/15/24 17:44 SP TYPE: PROST OTHR DR: Brooke Golden MD, DC Tissues: 1 - PROSTATE NEEDLE BIOPSY 2 - PROSTATE NEEDLE BIOPSY 3 - PROSTATE NEEDLE BIOPSY 4 - PROSTATE NEEDLE BIOPSY 5 - PROSTATE NEEDLE BIOPSY 6 - PROSTATE NEEDLE BIOPSY 7 - PROSTATE NEEDLE BIOPSY 8 - PROSTATE NEEDLE BIOPSY 9 - PROSTATE NEEDLE BIOPSY 10 - PROSTATE NEEDLE BIOPSY 11 - PROSTATE NEEDLE BIOPSY 12 - PROSTATE NEEDLE BIOPSY Procedures: GROSS AND MICRO LEVEL 4 IMMUNOPEROXIDASE STAIN Comments: [id number]
== END 2024-09-15 14:01 | disposition home or self-care (01) ==
LOC: LBN 14:00
PROVIDERS: PCP Family Medicine; Visit Provider Urology
DX: C61 Malignant neoplasm of prostate
CPT/HCPCS: 88305; 88361

== ENCOUNTER → 2024-10-07 10:47 | Outpatient (BNVA) | payer MEDICARE, MEDICAID, SELFPAY | PROVIDERS: PCP Family Medicine; Referring Provider Family Medicine; Visit Provider Urology | DX: C61 Malignant neoplasm of prostate (principal) | CPT/HCPCS: 99215 ==

== ENCOUNTER → 2024-10-16 08:39 | Outpatient (BNVA) | payer MEDICARE, MEDICAID, SELFPAY | PROVIDERS: PCP Family Medicine; Referring Provider Family Medicine; Visit Provider Urology | DX: C61 Malignant neoplasm of prostate (principal) | CPT/HCPCS: 96402; J9217 ==

== ENCOUNTER → 2024-12-01 10:20 | Outpatient (BNVA) | payer MEDICARE, MEDICAID, SELFPAY | PROVIDERS: PCP Family Medicine; Referring Provider Family Medicine; Visit Provider Nurse Practitioner Gerontology | DX: C61 Malignant neoplasm of prostate (principal); R97.20 Elevated prostate specific antigen [PSA] | CPT/HCPCS: 96402; J9217 ==

== ENCOUNTER 2025-02-04 13:10 | Outpatient (CLI) | payer MEDICARE, MEDICAID, SELFPAY ==
--- NOTE | 2025-02-04 13:00 | DI.RAD_ITS ---
Exam(s) XR CHEST 2V PA LATERAL EXAM: XR CHEST 2V PA LATERAL CLINICAL HISTORY: eval pna cough R05.9 TECHNIQUE: 2D digital imaging was performed of the chest. Two images were obtained. PA and lateral views were obtained. COMPARISON: CR XR RIBS RT W PA LAT CHEST from 03/23/2020 FINDINGS: MEDIASTINUM: Normal. HEART: Normal. PULMONARY VASCULATURE: Normal. LUNGS: Clear. PLEURAL SPACE: No pleural effusion or pneumothorax. BONE:Within normal limits for the patient's age. OTHER FINDINGS:Normal. IMPRESSION: No acute pulmonary findings. DATA REPOSITORY: RADIATION DOSE DELIVERED:
== END 2025-02-04 13:30 ==
LOC: DI 13:23
PROVIDERS: PCP Family Medicine; Visit Provider Nurse Practitioner Family
DX: R05.9 Cough, unspecified (principal)
CPT/HCPCS: 71046

== ENCOUNTER 2025-02-24 03:47 | Outpatient (CLI) | payer MEDICARE, MEDICAID, SELFPAY ==
[2025-02-24 14:41] LABS: ALT 36 U/L (16-63); AST 21 U/L (15-37); Albumin 3.6 g/dL (3.4-5.0); Alkaline Phosphatase 117 U/L (46-116); Anion Gap 7.3 mmol/L (3-11); BUN 12 mg/dL (7-18); Bilirubin, Total 0.6 mg/dL (0.2-1.0); CO2 26.7 mmol/L (21.0-32.0); CREATININE 1.2 mg/dL (0.70-1.30); Calcium 9.6 mg/dL (8.5-10.1); Calculated LDL 66 mg/dL (<100); Chloride 105 mmol/L (98-107); Cholesterol 146 mg/dL (<200); Estimated GFR 67.11 (mL/min/1.73m2); Glucose 88 mg/dL (74-106); HDL Cholesterol 33 mg/dL (>or=40); Sodium 139 mmol/L (136-145); TSH (W/Ref FT4) 1.69 uIU/mL (0.36-3.74); Total Protein 6.6 g/dL (6.4-8.2); Triglyceride 235 mg/dL (<150); Vitamin B12 439 pg/mL (193-986)
[2025-02-25 10:43] LABS: Hepatitis C Ab w Rflx HCV PCR Negative (Negative)
[2025-02-26 18:17] LABS: PSA, Ultrasensitive 0.02 ng/mL (<= 4.5)
== END 2025-02-24 03:48 | disposition home or self-care (01) ==
LOC: LBO 03:47
PROVIDERS: PCP Family Medicine; Visit Provider Nurse Practitioner Gerontology
DX: E53.8 Deficiency of other specified B group vitamins (principal); E03.9 Hypothyroidism, unspecified; I10 Essential (primary) hypertension; Z11.59 Encounter for screening for other viral diseases; C61 Malignant neoplasm of prostate; R97.20 Elevated prostate specific antigen [PSA]
CPT/HCPCS: 36415; 80053; 80061; 84153; 86803; 82607; 84443

== ENCOUNTER → 2025-03-03 14:23 | Outpatient (BNVA) | payer MEDICARE, MEDICAID, SELFPAY | PROVIDERS: PCP Family Medicine; Visit Provider Nurse Practitioner Gerontology | DX: C61 Malignant neoplasm of prostate (principal) | CPT/HCPCS: 96402; J9217 ==

== ENCOUNTER 2025-05-26 03:12 | Outpatient (CLI) | payer MEDICARE, MEDICAID, SELFPAY | END 2025-05-26 03:13 | disposition home or self-care (01) | LOC: LBO 03:12 | PROVIDERS: PCP Family Medicine; Visit Provider Nurse Practitioner Gerontology | DX: C61 Malignant neoplasm of prostate (principal); R97.20 Elevated prostate specific antigen [PSA] | CPT/HCPCS: 36415; 84153; 84403 ==

== ENCOUNTER → 2025-06-03 13:50 | Outpatient (BNVA) | payer MEDICARE, MEDICAID, SELFPAY | PROVIDERS: PCP Family Medicine; Visit Provider Nurse Practitioner Gerontology | DX: C61 Malignant neoplasm of prostate (principal); B35.4 Tinea corporis; R97.20 Elevated prostate specific antigen [PSA] | CPT/HCPCS: 96402; J9217 ==

== ENCOUNTER 2025-06-10 01:41 | Outpatient (CLI) | payer MEDICARE, MEDICAID, SELFPAY ==
--- NOTE | 2025-06-10 11:25 | DI.RAD_ITS ---
Exam(s) XR CHEST 2V PA LATERAL EXAM: XR CHEST 2V PA LATERAL CLINICAL HISTORY: sob, smoker, prostate cancer,r06.02 TECHNIQUE: 2D digital imaging was performed of the chest. Two images were obtained. PA and lateral views were obtained. COMPARISON: CR XR RIBS RT W PA LAT CHEST from 03/23/2020 CR XR CHEST 2V PA LATERAL from 02/04/2025 FINDINGS: MEDIASTINUM: Normal. HEART: Normal. PULMONARY VASCULATURE: Normal. LUNGS: There is a question of faint ovoid area of increased density in the right lung base. The left lung is clear. PLEURAL SPACE: No pleural effusion or pneumothorax. BONE:Within normal limits for the patient's age. OTHER FINDINGS:Normal. IMPRESSION: Question of a faint ovoid density in the right lung base. CT scan of the chest should be considered for further evaluation. This may be intraparenchymal or related to the rib. DATA REPOSITORY: RADIATION DOSE DELIVERED:
== END 2025-06-10 02:01 ==
PROVIDERS: PCP Family Medicine; Visit Provider Family Medicine
DX: R06.02 Shortness of breath (principal); R91.8 Other nonspecific abnormal finding of lung field
CPT/HCPCS: 71046

== ENCOUNTER 2025-06-19 00:57 | Outpatient (CLI) | payer MEDICARE, MEDICAID, SELFPAY ==
[2025-06-19] MEDS: Levalbuterol HFA 15 GM INH 4 PUFF IH (14:54)
[2025-06-19] MEDS: Inhaler, Assist Device 1 EACH MC (14:54)
--- NOTE | 2025-06-22 08:14 | W.PFT ---
Date of service: 06/19/25 Time of Service: 12:51 Pulmonary Function Test Result Indications: Dyspnea Impression 1. Good patient effort was noted. ATS standards for reproducibility were met. 2. Spirometry showed mild obstructive lung disease with an FEV1 of 102% (3.07 L) 3. Following the administration of a bronchodilator there was not a significant response 4. TLC and RV were elevated, suggestive of air trapping 5. DLCO was 71%, consistent with a mild defect in alveolar gas exchange
== END 2025-06-19 00:58 | disposition home or self-care (01) ==
LOC: RT 00:57
PROVIDERS: PCP Family Medicine; Visit Provider Internal Medicine Pulmonary Disease
DX: R06.09 Other forms of dyspnea (principal); J44.9 Chronic obstructive pulmonary disease, unspecified
CPT/HCPCS: 94060; 94726; 94729

== ENCOUNTER 2025-06-19 08:34 | Outpatient (CLI) | payer MEDICARE, MEDICAID, SELFPAY ==
--- NOTE | 2025-06-19 06:45 | DI.CT_ITS ---
Exam(s) CT CHEST WO EXAM: CT CHEST WO CLINICAL HISTORY: abnormal CXR,R93.89,? FAINT OVOID DENSITY RT LUNG BASE TECHNIQUE: Imaging Protocol: Axial computed tomography images with coronal and sagittal reformatted images were created and reviewed. Computer aided detection (CAD) was utilized. CONTRAST MATERIAL: Noncontrast. COMPARISON: CT CT CHEST LUNG CANCER SCREEN from 02/24/2021 CR XR CHEST 2V PA LATERAL from 02/04/2025 CR XR CHEST 2V PA LATERAL from 06/10/2025 FINDINGS: Pulmonary parenchyma: No consolidation. No dominant measurable mass. No abnormality identified in the right lung base as was questioned on recent chest x-ray. No pulmonary nodules. Tracheobronchial tree: No bronchiectasis or mucous plugging. Mediastinum and Tamiko: No dominant adenopathy or fluid collection. Pleura: No effusion. No pneumothorax. Heart: The heart is not dilated. Coronary artery calcifications are seen. Aorta: Thoracic aorta non-dilated. Mild atherosclerotic changes. Upper abdomen: No acute findings. Bones: Milddegenerative changes in the spine. Soft tissues: Unremarkable. IMPRESSION: No acute abnormality. RADIATION DOSE DELIVERED: 202.48mGy.cm Total DLP DATA REPOSITORY: All CT scans at this facility are submitted to the National Radiology Data Registry (NRDR) Dose Index Registry (DIR) with the [employer] (ACR). RADIATION OPTIMIZATION: All CT scans at this facility use at least one of these dose optimization techniques: automated exposure control; mA and/or kV adjustment per patient size (includes targeted exams where dose is matched to clinical indication); or iterative reconstruction.
== END 2025-06-19 08:54 ==
LOC: DI 08:35
PROVIDERS: PCP Family Medicine; Visit Provider Family Medicine
DX: R93.89 Abnormal findings on diagnostic imaging of other specified body structures (principal)
CPT/HCPCS: 71250; 94060; 94726; 94729

== ENCOUNTER 2025-06-24 02:18 | Outpatient (CLI) | payer MEDICARE, MEDICAID, SELFPAY ==
--- NOTE | 2025-06-24 07:30 | DI.RAD_ITS ---
Exam(s) RF BARIUM SWALLOW EXAM: RF BARIUM SWALLOW CLINICAL HISTORY: trouble swallowing,needs to clear throat often,r13.10,dysphagia TECHNIQUE: 2D and realtime digital imaging was performed. CONTRAST MATERIAL: Thick and thin barium and barium tablet were administered. COMPARISON: CT CT CHEST WO from 06/19/2025 FINDINGS: The PA and lateral chest films show normal heart size and clear lung turk. The lateral launderer hand view of the neck shows prominent osteophytes projecting anteriorly at C4-5 through C6-7, greatest at C5-6 where there is severe disc space narrowing. Esophagus: The patient swallowed barium without difficulty. Noevidence for mucosal erosions. Nofold thickening. No mass is visible. Nostricture. Motility: There is a normal primary stripping wave. No tertiary contractions were noted. There is no hiatal hernia. Nogastroesophageal reflux was observed during the exam. IMPRESSION: Normal barium swallow. RADIATION DOSE DELIVERED: gregorio Sutton=14.4 mGy
[2025-06-24] MEDS: Barium Sulfate 700 MG TAB PO (11:14)
[2025-06-24] MEDS: Barium Sulfate 60% W/V 355 ML BTL PO (11:14)
[2025-06-24] MEDS: Barium Sulfate 98% W/W 140 ML BTL PO (11:15)
[2025-06-24] MEDS: Simethicone/Sod Bicarb/Cit Ac, 4 gram PACKET 1 PACKET PO (11:19)
== END 2025-06-24 02:38 ==
LOC: DI 02:18
PROVIDERS: PCP Family Medicine; Visit Provider Family Medicine
DX: R13.10 Dysphagia, unspecified (principal)
CPT/HCPCS: 74221; J3490

== ENCOUNTER → 2025-09-03 13:36 | Outpatient (BNVA) | payer MEDICARE, MEDICAID, SELFPAY | PROVIDERS: PCP Family Medicine; Referring Provider Family Medicine; Visit Provider Nurse Practitioner Gerontology | DX: C61 Malignant neoplasm of prostate (principal) | CPT/HCPCS: 96402; J9217 ==

== ENCOUNTER 2025-09-03 14:35 | Outpatient (CLI) | payer MEDICARE, MEDICAID, SELFPAY | END 2025-09-03 14:36 | disposition home or self-care (01) | LOC: LBO 14:37 | PROVIDERS: PCP Family Medicine; Visit Provider Nurse Practitioner Gerontology | DX: C61 Malignant neoplasm of prostate (principal); R97.20 Elevated prostate specific antigen [PSA] | CPT/HCPCS: 36415; 84153; 84403; 96402; J9217 ==

== ENCOUNTER 2025-11-01 09:59 | Emergency (ER) | payer MEDICARE, MEDICAID, SELFPAY ==
[2025-11-01 10:11] VITALS: BP 158/95; PULSE 69; RESP 14; TEMP 36.1; O2SAT 96
--- NOTE | 2025-11-01 10:15 | RT.EKG_ITS ---
APPROVED REPORT Exam: Resting ECG Reason for Exam: Shortness of Breath Patient Location: E HR:58 bpm ECG Measurements Heart Rate 58 AXIS CA 153 P 43 QRSd 87 QRS 30 QT 413 T 20 QTc 405 Conclusion Sinus bradycardia...rate< 60 No Occlusion NH
--- NOTE | 2025-11-01 10:15 | DI.RAD_ITS ---
Exam(s) XR CHEST 2V PA LATERAL EXAM: XR CHEST 2V PA LATERAL CLINICAL HISTORY: Shortness of breath. TECHNIQUE: 2D digital imaging was performed. COMPARISON: CR,RF RF BARIUM SWALLOW from 06/24/2025 FINDINGS: 2 views: Heart size is normal. The mediastinum is not widened. Lungs are clear. No infiltrates nor pleural effusions. IMPRESSION: No acute pulmonary findings. DATA REPOSITORY: RADIATION DOSE DELIVERED:
[2025-11-01 10:17] VITALS: BP 158/95; PULSE 62; RESP 18; TEMP 36.1; O2SAT 96
--- NOTE | 2025-11-01 10:30 | DI.CT_ITS ---
Exam(s) CT HEAD WO/W EXAM: CT HEAD WO/W CLINICAL HISTORY: Headache prostate cancer. TECHNIQUE: Imaging Protocol: Both noninfused and contrast infused CT scans of the brain were performed. IV Contrast Dose =75 cc Axial computed tomography images with coronal and sagittal reformatted images were created and reviewed COMPARISON: No exams were available for comparison FINDINGS: There are no skull fractures. There is a fluid level in left maxillary sinus consistent with acute sinusitis. There is no bone dehiscence. Some mild mucosal thickening is noted in the opposite-right maxillary sinus. There is also fluid level in the sphenoid sinus. Left frontal sinuses clear. Right frontal sinus is not developed. There is mild mucosal thickening noted in ethmoidal air cells bilaterally. The mastoid air cells are clear and there is no fluid evident in the middle ear cavities. No skull lesions identified. There is no evidence of intracranial hemorrhage, mass effect, or shift of midline structures. There are no extra-axial fluid collections. The ventricles are not enlarged or shifted and there is no blood within the ventricular system nor within the basal cisterns. There are no ring enhancing lesions in the brain and there is no abnormal meningeal enhancement, focal or diffuse. No aneurysms evident. No evidence of vascular malformation. IMPRESSION: No significant intracranial findings. No significant enhancing intracranial findings. Acute sinusitis involving left maxillary sinus and sphenoid sinus. Report called by myself to ER physician 11/01/2025 at 1:45 p.m. RADIATION DOSE DELIVERED: 1,847.48mGy.cm Total DLP DATA REPOSITORY: All CT scans at this facility are submitted to the National Radiology Data Registry (NRDR) Dose Index Registry (DIR) with the [employer] (ACR). RADIATION OPTIMIZATION: All CT scans at this facility use at least one of these dose optimization techniques: automated exposure control; mA and/or kV adjustment per patient size (includes targeted exams where dose is matched to clinical indication); or iterative reconstruction.
[2025-11-01 11:17] LABS: Abs Immature Grans 0.03 10^3/uL (0.0-0.06); HCT 40.5 % (40.0-50.0); HGB 13.2 g/dL (13.5-17.5); Immature Grans % 0.5 %; MCH 30.0 pg (27.0-33.0); MCHC 32.6 % (32.0-36.0); MCV 92 fL (80-95); MPV 11.4 fL (8.0-11.0); Platelet Count 173 10^3/uL (130-400); RBC 4.40 10^6/uL (4.36-5.78); RDW 12.6 % (11.8-14.1); RDW-SD 42.1 fL; WBC 5.98 10^3/uL (4.4-10.8)
[2025-11-01] MEDS: Acetaminophen 500 MG TAB 1000 MG PO (11:20)
[2025-11-01] MEDS: Benzonatate 100 MG CAP PO (11:20)
--- NOTE | 2025-11-01 11:20 | DI.VRAD_ITS ---
PROCEDURE INFORMATION: Exam: XR Chest Exam date and time: 11/01/2025 10:50 AM Age: 64 years old Clinical indication: Shortness of breath TECHNIQUE: Imaging protocol: Radiologic exam of the chest. Views: 2 views. COMPARISON: CT CHEST WO 06/19/2025 2:49 PM FINDINGS: Lungs: Unremarkable. No consolidation. Pleural spaces: Unremarkable. No pleural effusion. No pneumothorax. Heart/Mediastinum: Unremarkable. No cardiomegaly. Bones/joints: Unremarkable. IMPRESSION: No acute findings. Dictated and Authenticated by: Gail Oh MD. Orderin Cosmo Melchor MD
[2025-11-01 11:28] LABS: COVID-19 PCR Negative (Negative); RSV PCR Negative (Negative)
[2025-11-01 11:48] LABS: Anion Gap 6.5 mmol/L (3-11); BUN 11 mg/dL (9-23); CO2 29.5 mmol/L (20.0-31.0); Calcium 9.9 mg/dL (8.3-10.6); Chloride 107 mmol/L (98-107); Glucose 109 mg/dL (74-106); Potassium 4.0 mmol/L (3.5-5.1); Sodium 143 mmol/L (136-145)
[2025-11-01] MEDS: Normal Saline Flush 10 ML SYR IVP (12:13)
[2025-11-01] MEDS: Omnipaque 350 MG/ML 100 ML BTL IJ (12:14)
[2025-11-01] MEDS: Normal Saline - Diluent 50 ML VIAL IJ (12:14)
--- NOTE | 2025-11-01 12:49 | ED.GENADUL_ITS ---
Discharge Plan Disposition Patient Disposition: Home Discharge Details Clinical Impression: Viral upper respiratory infection, Sinusitis Primary Care Provider: Brooke Golden ED Provider: Ruiz Wilburn [facility] Meds and New Rx's Prescriptions: New cetirizine 10 mg tablet 10 mg PO DAILY PRNQty: 7 0RF benzonatate 100 mg capsule 100 mg PO BID PRNQty: 7 0RF fluticasone propionate [Flonase Allergy Relief] 50 mcg/actuation spray,suspension 1 spray intranasal DAILY Qty: 16 0RF Rx Instructions: administer into each nostril naproxen 500 mg tablet 500 mg PO BID PRNQty: 7 0RF amoxicillin-pot clavulanate 875-125 mg tablet 1 tab PO BID 7 Days Qty: 14 0RF Continued abiraterone [Zytiga] 500 mg tablet 1,000 mg PO DAILY Qty: 1000 0RF Rx Instructions: must be taken on empty stomach, at least 1 hr before or 2 hrs after a meal/food prednisone 5 mg tablet 5 mg PO DAILY Qty: 90 0RF lisinopril 10 mg tablet 10 mg PO DAILY Qty: 90 5RF pantoprazole 40 mg tablet,delayed release (DR/EC) 40 mg PO DAILY Qty: 90 4RF fluticasone propion-salmeterol [Advair Diskus] 500-50 mcg/dose blister with device 1 inh inhalation BID Qty: 180 5RF epinephrine [EpiPen 2-Elan] 0.3 mg/0.3 mL auto-injector 0.3 mg IM Q5-15M PRN (Reason: hypersensitivity reaction) Qty: 2 0RF Rx Instructions: do not exceed 3 doses per episode metoprolol succinate 100 mg tablet extended release 24 hr 100 mg PO DAILY Qty: 90 5RF citalopram 20 mg tablet 20 mg PO DAILY Qty: 90 12RF albuterol sulfate 90 mcg/actuation HFA aerosol inhaler 2 puff inhalation Q6H PRN (Reason: shortness of breath or wheezing) Qty: 8.5 0RF nicotine (polacrilex) 2 mg gum 2 mg BC Q2H Qty: 100 2RF clonazepam 0.5 mg tablet 0.5 mg PO QHS PRN (Reason: insomnia) Qty: 30 3RF Rx Instructions: administer 30 minutes before bedtime atorvastatin [Lipitor] 10 mg tablet 10 mg PO DAILY Qty: 90 3RF hydrocodone-acetaminophen 5-325 mg tablet 1 tab PO TID MDD 3 PRN (Reason: pain) Qty: 30 0RF Discharge Instructions Additional Instructions: You are seen emergency department for your shortness of breath headaches and cough. Your x-ray showed no sign of any pneumonia. Your COVID swab was negative. Your CT scan showed no sign of any masses in your brain. Your CAT scan did show sign of sinusitis and given duration of time since your symptoms began we will treat with antibiotics. As we discussed please follow-up with your primary care provider. You may benefit from an MRI of your brain which is a more sensitive test. Please take these supportive medications that have been sent to your pharmacy. Stand Alone Forms: Portal Information HPI General Date/Time Provider Initiated Documentation: 11/01/25 10:20 . HPI Narrative: MDM This is an overall well-appearing afebrile nontachycardic 54-year-old male with prostate cancer headaches for which patient underwent CT scan which was reassuring against any intracranial masses. His chest x-ray showed no infiltrate. His CT scan did show signs of sinusitis. Given multiple weeks of symptoms I ordered amoxicillin clavulanic acid. Unfortunately patient left the emergency department prior to receiving his prescription. I left a message for the patient to call me at home. No pain or proportion to suggest necrotizing soft tissue infection. I considered sepsis however patient is quite well- appearing. No chiropractic manipulation to suggest increased risk for cervical arterial dissection. Headache was not sudden onset to suggest increased risk for subarachnoid hemorrhage. No focal neurological deficits to suggest CVA. No tonic-clonic activity to suggest seizure. No nuchal rigidity to suggest meningitis. 12:50 PM COVID influenza RSV are negative. Reassuring basic metabolic panel with no MARCUS no acute electrolyte abnormalities. CBC with improved mild normocytic anemia. No thrombocytopenia. No leukocytosis. Prescription has been sent to the patient's pharmacy. If patient calls back to the emergency department he should be notified of his prescription. He should be advised to return if he developed any worsening symptoms nausea or vomiting. HPI This is a patient with a history of prostate cancer presenting with headaches. The patient reports experiencing headaches that began a few weeks ago. He describes the pain as originating behind his left eye, causing pressure and leading to vomiting. The headaches were initially intense, particularly during the first three days, but have since improved slightly. He also reports sinus congestion and postnasal drip. The onset of the headaches was gradual, and he believes they may be related to a viral infection. He reports no trouble breathing, leg swelling, cardiac issues, or chest pain. He does experience coughing fits and has difficulty breathing through his nose at night. His daughter and grandson have been ill recently, with his daughter diagnosed with pneumonia and bronchitis. Exam General: Well-appearing in no acute distress speaking in complete sentences. Head: Normocephalic, atraumatic. Eye: Extraocular eye movements intact. No conjunctival injection. No scleral icterus. Ear, nose, mouth, throat: Grossly normal inspection. Normal voice, handling secretions normally. Neck: Trachea midline. Cardiovascular: Well-perfused distal extremities. Respiratory: Nonlabored respiration. Gastrointestinal: Nondistended abdomen. Musculoskeletal: No edema. Moving all 4 extremities spontaneously. Skin: Normal for age and race, grossly normal temperature and turgor. No acute rash. Neurologic: Alert and appropriate, no apparent acute deficits. GCS 15. Cranial nerves II through XII intact grossly. Psychiatric: Mood and manner are appropriate. Grooming and personal hygiene are appropriate. Related Data Home Medications ?Medication ?Instructions ?Recorded ?Confirmed epinephrine 0.3 mg/0.3 mL 0.3 mg (0.3 mL) IM Q5-15M AK N 06/25/23 11/01/25 injection, auto-injector (EpiPen hypersensitivity reac tion #2 ea 2-Elan) metoprolol succinate 100 mg 100 mg PO DAILY #90 tabs 0 12/08/24 11/01/25 tablet,extended release 24 hr abiraterone 500 mg tablet (Zytiga) 1,000 mg (2 x 500 m g) PO DAILY 01/22/25 11/01/25 #1,000 tabs lisinopril 10 mg tablet 10 mg PO DAILY #90 tabs 01/0411/01/25 prednisone 5 mg tablet 5 mg PO DAILY #90 tabs 01/2211/01/25 citalopram 20 mg tablet 20 mg PO DAILY #90 tab-caps 03/10/25 11/01/25 albuterol sulfate 90 mcg/actuation 2 puff inhalation Q 6H PRN 04/10/25 11/01/25 aerosol inhaler shortness of breath or wheez ing #8.5 grams clonazepam 0.5 mg tablet 0.5 mg PO QHS PRN insomnia # 30 tabs 06/05/25 11/01/25 nicotine (polacrilex) 2 mg gum 2 mg buccal Q2H #100 ea 06/05/25 11/01/25 fluticasone 500 mcg-salmeterol 50 1 inh inhalation BID #180 ea 06/11/25 11/01/25 mcg/dose blistr powdr for inhalation (Advair Diskus) pantoprazole 40 mg tablet,delayed 40 mg PO DAILY #90 t abs 06/11/25 11/01/25 release atorvastatin 10 mg tablet (Lipitor) 10 mg PO DAILY #90 tabs 07/10/25 11/01/25 hydrocodone 5 mg-acetaminophen 325 1 tab PO TID PRN pa in #30 tab-caps 10/07/25 11/01/25 mg tablet amoxicillin 875 mg-potassium 1 tab PO BID 7 days #14 t abs 11/01/25 clavulanate 125 mg tablet benzonatate 100 mg capsule 100 mg PO BID PRN #7 caps 1 01/02/25 cetirizine 10 mg tablet 10 mg PO DAILY PRN #7 tabs 1 01/02/25 fluticasone propionate 50 1 spray intranasal DAILY #16 grams 11/01/25 mcg/actuation nasal spray,suspension (Flonase Allergy Relief) naproxen 500 mg tablet 500 mg PO BID PRN #7 tabs Previous Rx's ?Medication ?Instructions ?Recorded epinephrine 0.3 mg/0.3 mL 0.3 mg (0.3 mL) IM Q5-15M AK N 06/25/23 injection, auto-injector (EpiPen hypersensitivity reac tion #2 ea 2-Elan) metoprolol succinate 100 mg 100 mg PO DAILY #90 tabs 0 12/08/24 tablet,extended release 24 hr abiraterone 500 mg tablet (Zytiga) 1,000 mg (2 x 500 m g) PO DAILY 01/22/25 #1,000 tabs lisinopril 10 mg tablet 10 mg PO DAILY #90 tabs 01/04 0 prednisone 5 mg tablet 5 mg PO DAILY #90 tabs 01/22 citalopram 20 mg tablet 20 mg PO DAILY #90 tab-caps 03/10/25 albuterol sulfate 90 mcg/actuation 2 puff inhalation Q 6H PRN 04/10/25 aerosol inhaler shortness of breath or wheez ing #8.5 grams clonazepam 0.5 mg tablet 0.5 mg PO QHS PRN insomnia # 30 tabs 06/05/25 nicotine (polacrilex) 2 mg gum 2 mg buccal Q2H #100 ea 06/05/25 fluticasone 500 mcg-salmeterol 50 1 inh inhalation BID #180 ea 06/11/25 mcg/dose blistr powdr for inhalation (Advair Diskus) pantoprazole 40 mg tablet,delayed 40 mg PO DAILY #90 t abs 06/11/25 release atorvastatin 10 mg tablet (Lipitor) 10 mg PO DAILY #90 tabs 07/10/25 hydrocodone 5 mg-acetaminophen 325 1 tab PO TID PRN pa in #30 tab-caps 10/07/25 mg tablet amoxicillin 875 mg-potassium 1 tab PO BID 7 days #14 t abs 11/01/25 clavulanate 125 mg tablet benzonatate 100 mg capsule 100 mg PO BID PRN #7 caps 1 01/02/25 cetirizine 10 mg tablet 10 mg PO DAILY PRN #7 tabs 1 01/02/25 fluticasone propionate 50 1 spray intranasal DAILY #16 grams 11/01/25 mcg/actuation nasal spray,suspension (Flonase Allergy Relief) naproxen 500 mg tablet 500 mg PO BID PRN #7 tabs Allergies Allergy/AdvReac Type Severity Reaction Status Date / Time venom-honey bee Allergy Syncope Verified 11/01/25 10:17 oxycodone AdvReac Intermediate hallucinati Verified 11/01/25 10:17 ons trazodone AdvReac Intermediate dreams Verified 11/01/25 10:17 General Stated Complaint: RespSymp LANEY: 3 Course Vital Signs Vital signs: Vital Signs Temperature 36.1 C L 11/01/25 10:11 Pulse 69 11/01/25 10:11 Respiratory Rate 14 11/01/25 10:11 Blood Pressure 158/95 H 11/01/25 10:11 Pulse Oximetry 96 11/01/25 10:11 Temperature 36.1 C L 11/01/25 10:17 Temperature Source Oral 11/01/25 10:17 Pulse 62 11/01/25 10:17 Respiratory Rate 18 11/01/25 10:17 Respiratory Effort Normal, Non-Labored 11/01/25 10:36 Respiratory Depth Normal 11/01/25 10:36 Blood Pressure 158/95 H 11/01/25 10:17 Blood Pressure Position Sitting 11/01/25 10:17 Pulse Oximetry 96 11/01/25 10:17 Oxygen Delivery Method Room Air 11/01/25 10:17 Oxygen Flow Rate 0 11/01/25 10:11 Pain Level 8 11/01/25 10:11 Lab/Test Results Lab/Test Results: Laboratory Tests Range/Units 11/01/25 11/01/25 10:14 11:08 WBC (4.4-10.8) 10^3/uL 5.98 RBC (4.36-5.78) 10^6/uL 4.40 Hgb (13.5-17.5) g/dL 13.2 L Hct (40.0-50.0) % 40.5 MCV (80-95) fL 92 MCH (27.0-33.0) pg 30.0 MCHC (32.0-36.0) % 32.6 RDW (11.8-14.1) % 12.6 Plt Count (130-400) 10^3/uL 173 MPV (8.0-11.0) fL 11.4 H Immature Gran % % 0.5 Neutrophils % % 68.8 Lymphocytes % % 20.9 Monocytes % % 6.7 Eosinophils % % 2.3 Basophils % % 0.8 Nucleated RBC % (0.0-0.3) % 0.0 Absolute Neutrophils (1.2-6.7) 10^3/uL 4.11 Absolute Lymphocytes (1.2-3.4) 10^3/uL 1.25 Absolute Monocytes (0.1-0.8) 10^3/uL 0.40 Absolute Eosinophils (0.0-0.7) 10^3/uL 0.14 Absolute Basophils (0.0-0.2) 10^3/uL 0.05 Sodium (136-145) mmol/L 143 Potassium (3.5-5.1) mmol/L 4.0 Chloride (98-107) mmol/L 107 Carbon Dioxide (20.0-31.0) mmol/L 29.5 Anion Gap (3-11) mmol/L 6.5 BUN (9-23) mg/dL 11 Creatinine (0.73-1.18) mg/dL 1.01 Est GFR (CKD-EPI 2020) (mL/min/1.73m2) 73.91 Glucose (74-106) mg/dL 109 H Calcium (8.3-10.6) mg/dL 9.9 COVID-19 Source Nasopharynx SARS-CoV-2 (PCR) (Negative) Negative Influenza Type A (PCR) (Negative) Negative Influenza Type B (PCR) (Negative) Negative RSV (PCR) (Negative) Negative PFSH All Active Problems (Updated 11/01/25 @ 13:56 by Ruiz Wilburn MD) Sinusitis (Acute) Viral upper respiratory infection (Acute) Sore throat (Acute) Cholesteatoma of left external auditory canal (Acute) COPD (chronic obstructive pulmonary disease) (Chronic) Dysphagia (Acute) Abnormal CXR (Acute) Otitis externa of left ear (Acute) B12 deficiency (Acute) Prostate cancer (Chronic) Coil in place. 6 tx to date Encounter for hepatitis C screening test for low risk patient (Acute) Left knee pain (Acute) Grief (Chronic) Left shoulder pain (Acute) Leg pain, bilateral (Acute) Carpal tunnel syndrome on both sides (Acute) Neuropathy (Acute) Arthralgia (Acute) Elevated PSA (Acute) HAs not done follow up of MRI recommended by [facility] Smoker (Acute) Right shoulder pain (Acute) Kidney mass (Acute) Right hip pain (Acute) Shoulder pain (Acute) Skin lesion (Acute) Sinus pain (Acute) Onychomycosis (Chronic 09/05/10) Lumbago (Chronic 09/05/10) Hyperlipidemia (Chronic 05/27/13) Economic problem (Chronic) Depressive disorder (Chronic 09/05/10) Degeneration of cervical intervertebral disc (Chronic 09/05/10) Anxiety (Chronic 12/18/16) Annual physical exam (Acute 05/01/17) Essential hypertension (Chronic) Chronic pain disorder (Chronic 06/20/12) 02/07/16; NARCOTIC CONTRACT 07/03/17; CONTROLLED SUBSTANCE AGREEMENT~RENEWED Medical History Advance care planning Plantar fascia syndrome 10/21/15 Shoulder pain (04/20/14) partiel tear of supraspinatus mri 01/17 Surgical History Repair of inguinal hernia (~1979) RIGHT Family History (Updated 06/25/23 @ 14:43 by Carlie Ty) Mother , 89 Dementia Father , 74 Dementia Sister Celiac disease Brother No problems noted. Maternal Grandfather No problems noted. Paternal Grandfather No problems noted. Maternal Grandmother , 84 Heart disease Paternal Grandmother No problems noted. Uncle [place]'s disease Sister No problems noted. Daughter No problems noted. Social History (Updated 06/25/23 @ 14:42 by Carlie Ty) Smoking/Tobacco Use Status: Current every day Tobacco Type: cigarettes Tobacco: How many years used: 26 Quit status: considering quitting Second Hand Exposure: Yes Smoking risk assessment performed?: Yes Alcohol Intake: current Alcohol Intake frequency: holidays/special occasions only Alcohol type: beer Drug use: Rarely Substance use type: does not use Details: prescription- hydrocodone 5 mg x 15 pills per month. Is out this month. Caregiver/Support person: No Household members: spouse Communication Needs: Corrective Lenses Do you need help understanding health information?: Never Pets and animals: No Sexually active: Yes Do you think of yourself as: straight/heterosexual Current gender identity: male What is your relationship status?: How often do you talk on the phone with friends or family?: twice per week How often do you get together with friends or relatives?: once per week How often do you attend yazidi or protestant services?: 1-3 times per year Do you belong to any clubs or organized social groups?: no Panel score (0-1 are the most socially isolated patients): 2 What type of physical activity do you participate in: none Nahomi/Confucianism: Judaism Special nahomi needs: No Seatbelt use: always 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
--- NOTE | 2025-11-01 13:41 | DI.VRAD_ITS ---
PROCEDURE INFORMATION: Exam: CT Head With Contrast Exam date and time: 11/01/2025 12:04 PM Age: 64 years old Clinical indication: Other: Headache, prostate cancer TECHNIQUE: Imaging protocol: Computed tomography of the head with intravenous contrast. Radiation optimization: All CT scans at this facility use at least one of these dose optimization techniques: automated exposure control; mA and/or kV adjustment per patient size (includes targeted exams where dose is matched to clinical indication); or iterative reconstruction. Contrast material: OMNI 350; Contrast volume: 100 ml; Contrast route: INTRAVENOUS (IV); COMPARISON: RF BARIUM SWALLOW 06/24/2025 10:47 AM FINDINGS: Brain: No acute intracranial hemorrhage.. There is mild diffuse heterogeneity of the white matter attenuation, consistent with chronic white matter ischemic changes. Mild cerebral atrophy Cerebral ventricles: Unremarkable. No ventriculomegaly. Bones/joints: Unremarkable. No acute fracture. Paranasal sinuses: Opacities in the maxillary sinuses and ethmoid sinuses and sphenoid sinuses may reflect acute sinusitis. Mastoid air cells: Visualized mastoid air cells are well aerated. Soft tissues: Unremarkable. IMPRESSION: 1. No acute intracranial hemorrhage.. 2. Opacities in the maxillary sinuses and ethmoid sinuses and sphenoid sinuses may reflect acute sinusitis. Dictated and Authenticated by: Gail Oh MD. Orderin Cosmo Melchor MD
== END 2025-11-01 14:06 | disposition home or self-care (01) ==
PROVIDERS: Emergency Provider Emergency Medicine; PCP Family Medicine
DX: J01.40 Acute pansinusitis, unspecified (principal); J06.9 Acute upper respiratory infection, unspecified; E78.5 Hyperlipidemia, unspecified; I10 Essential (primary) hypertension; F17.210 Nicotine dependence, cigarettes, uncomplicated
CPT/HCPCS: 36415; 80048; 87637; 93005; 99285; 70470; 71046; 85025; 93010; 99284; J3490